=== PATIENT | female | born 1960 | race Caucasian/White ===

== ENCOUNTER 2022-03-22 20:47 | Emergency (ER) | payer BC, OTHER, SELFPAY ==
--- NOTE | 2022-03-22 | ECG_ITS ---
Test Reason : CHEST PAIN Blood Pressure : / mmHG Vent. Rate : 080 BPM Atrial Rate : 080 BPM P-R Int : 176 ms QRS Dur : 088 ms QT Int : 374 ms P-R-T Axes : 034 032 053 degrees QTc Int : 431 ms Normal sinus rhythm Normal ECG No previous ECGs available Referred By: Generic ED Physician Electronically Signed By:Dariel Nobles
--- NOTE | ~2022-03-22 | CT_ITS ---
EXAMINATION: CT CHEST WITHOUT CONTRAST CLINICAL INFORMATION: Left-sided pain of questionable etiology COMPARISON: None TECHNIQUE: Multidetector volumetric CT imaging of the chest was done. Axial MIP volume rendering provided. Sagittal and coronal reformatted images were obtained. This CT examination was performed using dose optimization techniques as appropriate, variously including the following: *Automated exposure control *Adjustment of mA and/or kV according to patient size (this includes techniques or standardized protocols for targeted exams where dose is matched to indication/reason for exam; i.e. extremities or head) *Use of iterative reconstruction technique DLP: 312 mGy-cm FINDINGS: LUNGS: Mild biapical scarring. No regions of consolidation bilaterally. A few tiny calcified nodules are most consistent with granulomas. MEDIASTINUM: Partially calcified nodule noted in the inferior right thyroid lobe, suspected to measure approximately 1 cm in total size. There are subcentimeter mediastinal lymph nodes within the range of normal variation. Cardiac size is within normal limits; no pericardial effusion. Coronary artery calcifications are present. PLEURA: There is no pleural effusion. No pleural mass or thickening. AXILLA: Numerous right axillary clips are present. No mediastinal lymphadenopathy is seen. UPPER ABDOMEN: There is an indeterminate mildly hypodense lesion in the anterior left hepatic lobe measuring approximately 5.2 x 3.2 cm on image 57/67. There is likely an additional 1.2 cm mildly hypodense lesion near the junction of the right and left hepatic lobe on image 55/67. OSSEOUS STRUCTURES: Mild degenerative endplate changes are noted in the spine. CT/CT chest wo IV con IMPRESSION: 1. No acute intrathoracic findings identified. 2. Partially calcified inferior right thyroid lobe nodule suspected to measure approximately 1 cm. If not already performed, further workup with thyroid ultrasound is recommended. 3. Coronary artery calcifications. Correlation with cardiac risk factors is recommended. 4. Indeterminate hepatic lesions as described above, with benign or malignant etiologies remaining as possibilities. If a diagnosis has not been previously determined, further workup with dynamic liver MRI is recommended.
[2022-03-22 20:48] VITALS: BP 171/98; PULSE 85; RESP 18; TEMP 36.2; O2SAT 100; BMI 25.7
[2022-03-22 21:22] LABS: Basophils Percent Auto 0.1 % (0-2); Hematocrit 36.7 % (37.0-47.0); Hemoglobin 12.2 g/dl (12.0-16.0); Imm Gran Abs Auto 0.04 X10*3/uL (0.00-0.03); Imm Gran Pct Auto 0.5 % (0.0-0.4); Lymphocytes Absolute Auto 1.7 X10*3/uL (1.2-4.9); Lymphocytes Percent Auto 21.8 % (20-40); MANUAL DIFF FLAG NO; Mean Corpuscular HGB Conc 33.2 g/dl (31.0-35.0); Mean Corpuscular Volume 87.2 fL (80.0-98.0); Mean Platelet Volume 8.9 fL (9.4-12.3); Monocytes Absolute Auto 0.6 X10*3/uL (0.1-1.2); Monocytes Percent Auto 7.7 % (2-11); Neutrophils Absolute Auto 5.4 x10*3/uL (2.0-8.3); Neutrophils Percent Auto 69.9 % (45-73); Platelet Count 247 X10*3/uL (160-400); Red Blood Count 4.21 X10*6/uL (4.20-5.50); Red Cell Distribution Width 13.5 % (11.0-16.0); White Blood Count 7.7 X10*3/uL (4.8-10.8)
[2022-03-22 21:44] LABS: Alanine Aminotransferase 103 U/L (0-31); Albumin Level 4.2 g/dL (3.5-5.0); Alkaline Phosphatase 50 U/L (39-117); Anion Gap 14 (12-20); Aspartate Amino Transferase 56 U/L (5-31); Bilirubin Total 0.4 mg/dL (0.0-1.0); Blood Urea Nitrogen 12 mg/dL (9-16); Calcium 9.6 mg/dL (8.4-10.2); Carbon Dioxide 26 mmol/L (22-29); Chloride 104 mmol/L (96-108); Creatinine Clr Calc Pharmacy 77.9; Estimated Glomerular Filt Rate > 60; Glucose Random 104 mg/dL (60-115); Potassium 4.1 mmol/L (3.3-5.1); Sodium 140 mmol/L (135-145); Total Protein 7.4 g/dL (6.5-8.0)
--- NOTE | 2022-03-22 22:06 | ED_ITS ---
HPI - Chest Pain General Chief Complaint: Chest Pain Stated Complaint: Chest pain Time Seen by Provider: 03/22/22 21:10 Source: patient Mode of arrival: ambulatory Limitations: no limitations History of Present Illness HPI narrative: Patient with history of hypertension hyperlipidemia been complaining of left-sided chest pain for last 3 days. Pain is constant all the time feels something squeezing on the left side no shortness of breath no cough also patient feels some slight burning sensation mid chest with no history of GERD in the past. Pain radiates to the left shoulder never had similar pain in the pas t, no diaphoresis no cough patient does take baby aspirin daily as patient's mother has significant history of heart problems Related Data Allergies Allergy/AdvReac Type Severity Reaction Status Date / Time codeine Allergy Nausea and Verified 03/22/22 22:23 Vomiting erythromycin base Allergy Nausea and Verified 03/22/22 22:23 Vomiting [id number]-[id number]-[id number] Reductase Allergy Anaphylaxis Verified 03/22/22 22:23 Inhibitor terbinafine Allergy Hives Verified 03/22/22 22:23 tree nut Allergy Anaphylaxis Verified 03/22/22 22:23 Review of Systems Review of Systems: Yes all other systems are reviewed and are negative [facility] Past Medical History Medical History Hyperlipidemia Hypertension Social History Social History Alcohol intake: current Alcohol intake frequency: a few times a month Patient Tobacco Use Status: Never used Tobacco Use of substances other than those prescribed or required for medical reasons: No Advance Directives: No Physical Exam Vital Signs: Vital Signs: Last Vital Signs Temp 98.1 F 03/22/22 22:08 Pulse 71 03/22/22 23:50 Resp 15 03/22/22 23:50 BP 153/84 H 03/22/22 23:50 Pulse Ox 98 03/22/22 23:50 BMI result Body Mass Index 25.7 Appearance: Alert. Oriented X3. No acute distress. Eyes: No pallor or icterus ENT: Pharynx normal. Oral Mucosa moist Neck: Normal inspection. Neck supple. CVS: Normal heart rate and rhythm. Pulses normal. Respiratory: No respiratory distress. Equal air entry bilateral, no wheezing/rales/rhonchi Abdomen: Soft and nontender. Bowel sounds are present, no mass palpable, no CVA tenderness Skin: Skin warm and dry. Normal skin color. Normal skin turgor. Extremities: No lower extremity edema. No calf tenderness Neuro: Oriented X 3. No motor deficit. MDM - Chest Pain MDM Narrative Medical decision making narrative: Patient with 3 days of chest pain without any ischemic changes high sensitive troponin negative patient still complaining of discomfort in the chest chest CT was done which was also negative for some calcification of coronary arteries will repeat troponin place nitro paste. Patient took aspirin today in the morning Lab Data Attestation: I reviewed the patient's lab results. Result diagrams: 03/22/22 21:13 03/22/22 21:13 Labs: Lab Results 03/22/22 03/22/22 03/22/22 Range/Units 21:13 21:13 21:13 WBC 7.7 (4.8-10.8) X10*3/uL RBC 4.21 (4.20-5.50) X10*6/uL Hgb 12.2 (12.0-16.0) g/dl Hct 36.7 L (37.0-47.0) % MCV 87.2 (80.0-98.0) fL MCH 29.0 (27.0-33.0) pg MCHC 33.2 (31.0-35.0) g/dl RDW 13.5 (11.0-16.0) % Plt Count 247 (160-400) X10*3/uL MPV 8.9 L (9.4-12.3) fL Immature Gran % (Auto) 0.5 H (0.0-0.4) % Neut % (Auto) 69.9 (45-73) % Lymph % (Auto) 21.8 (20-40) % [place] % (Auto) 7.7 (2-11) % Eos % (Auto) 0.0 (0-4) % Baso % (Auto) 0.1 (0-2) % Lymph # (Auto) 1.7 (1.2-4.9) X10*3/uL [place] # (Auto) 0.6 (0.1-1.2) X10*3/uL Eos # (Auto) 0.0 (0.0-0.4) X10*3/uL Baso # (Auto) 0.0 (0.0-0.2) X10*3/uL Abs Immat Gran (auto) 0.04 H (0.00-0.03) X10*3/uL Absolute Neuts (auto) 5.4 (2.0-8.3) x10*3/uL Absolute Nucleated RBC 0.000 (0.0-0.012) X10*3/uL Nucleated RBC % (auto) 0.0 (0.0-0.2) /100WBC D-Dimer High Sensitivty NG/ML Sodium 140 (135-145) mmol/L Potassium 4.1 (3.3-5.1) mmol/L Chloride 104 (96-108) mmol/L Carbon Dioxide 26 (22-29) mmol/L Anion Gap 14 (12-20) BUN 12 (9-16) mg/dL Creatinine 0.70 (0.5-1.4) mg/dL Estim Creat Clear Calc 77.9 Estimated GFR > 60 Random Glucose 104 (60-115) mg/dL Calcium 9.6 (8.4-10.2) mg/dL Total Bilirubin 0.4 (0.0-1.0) mg/dL AST 56 H (5-31) U/L ALT 103 H (0-31) U/L Alkaline Phosphatase 50 (39-117) U/L Troponin I High Sens < 3.5 (<3.5-17.0) ng/L B-Natriuretic Peptide 32 (<100) pg/mL Total Protein 7.4 (6.5-8.0) g/dL Albumin 4.2 (3.5-5.0) g/dL 03/22/22 03/23/22 Range/Units 22:31 00:52 WBC (4.8-10.8) X10*3/uL RBC (4.20-5.50) X10*6/uL Hgb (12.0-16.0) g/dl Hct (37.0-47.0) % MCV (80.0-98.0) fL MCH (27.0-33.0) pg MCHC (31.0-35.0) g/dl RDW (11.0-16.0) % Plt Count (160-400) X10*3/uL MPV (9.4-12.3) fL Immature Gran % (Auto) (0.0-0.4) % Neut % (Auto) (45-73) % Lymph % (Auto) (20-40) % [place] % (Auto) (2-11) % Eos % (Auto) (0-4) % Baso % (Auto) (0-2) % Lymph # (Auto) (1.2-4.9) X10*3/uL [place] # (Auto) (0.1-1.2) X10*3/uL Eos # (Auto) (0.0-0.4) X10*3/uL Baso # (Auto) (0.0-0.2) X10*3/uL Abs Immat Gran (auto) (0.00-0.03) X10*3/uL Absolute Neuts (auto) (2.0-8.3) x10*3/uL Absolute Nucleated RBC (0.0-0.012) X10*3/uL Nucleated RBC % (auto) (0.0-0.2) /100WBC D-Dimer High Sensitivty 239 NG/ML Sodium (135-145) mmol/L Potassium (3.3-5.1) mmol/L Chloride (96-108) mmol/L Carbon Dioxide (22-29) mmol/L Anion Gap (12-20) BUN (9-16) mg/dL Creatinine (0.5-1.4) mg/dL Estim Creat Clear Calc Estimated GFR Random Glucose (60-115) mg/dL Calcium (8.4-10.2) mg/dL Total Bilirubin (0.0-1.0) mg/dL AST (5-31) U/L ALT (0-31) U/L Alkaline Phosphatase (39-117) U/L Troponin I High Sens < 3.5 (<3.5-17.0) ng/L B-Natriuretic Peptide (<100) pg/mL Total Protein (6.5-8.0) g/dL Albumin (3.5-5.0) g/dL ECG Data ECG #1: Attestation: I personally reviewed and interpreted this ECG as follows: Interpretation: Normal sinus rhythm heart rate 80 beats per minute normal interval normal axis patient normal EKG Scores Heart Score History: -0- slightly suspicious ECG: -0- normal Age: -1- >45 - <65 Risk factory: -1- 1 or 2 risk factors Troponin: -0- < or = normal limit Score: 2 Risk: 1.7% Discharge Plan Discharge Clinical Impression: Chest pain Patient Disposition: Home, Self-Care Instructions: Chest Pain (ED) Additional Instructions: Continue to take a baby aspirin daily Follow with PCP/cardiology for further evaluation including stress test Go to the ER if increased in severity of chest pain or change in character chest pain
[2022-03-22 22:08] VITALS: BP 158/93; PULSE 82; RESP 18; TEMP 36.7; O2SAT 99
[2022-03-22] MEDS: Famotidine/PF 20 MG/2 ML VIAL IVPUSH (22:35)
[2022-03-22 22:53] LABS: D Dimer High Sensitivity 239 NG/ML
[2022-03-22 23:04] LABS: B Type Natriuretic Peptide 32 pg/mL (<100); Troponin-I High Sensitivity < 3.5 ng/L (<3.5-17.0)
[2022-03-22 23:50] VITALS: BP 153/84; PULSE 71; RESP 15; O2SAT 98
[2022-03-23] MEDS: Nitroglycerin 2 % Oint 1 GM Packet 0.5 INCH TRANSDERMA (00:40)
[2022-03-23 01:22] LABS: Troponin-I High Sensitivity < 3.5 ng/L (<3.5-17.0)
== END 2022-03-23 01:44 | disposition home or self-care (01) ==
PROVIDERS: Emergency Provider Internal Medicine; PCP Internal Medicine
DX: R07.89 Other chest pain (principal); M54.6 Pain in thoracic spine; R06.02 Shortness of breath; Z79.899 Other long term (current) drug therapy; Z20.822 Contact with and (suspected) exposure to COVID-19
CPT/HCPCS: 36415; 71250; 80053; 83880; 84484; 85025; 85379; 93005; 96374; 99284

== ENCOUNTER 2025-01-08 13:44 | Emergency (ER) | payer BC, OTHER, SELFPAY ==
--- NOTE | ~2025-01-08 | CT_ITS ---
EXAMINATION: CT ABDOMEN AND PELVIS WITHOUT CONTRAST CLINICAL INFORMATION: Right flank pain. COMPARISON: No prior. Correlation made with CT chest 03/22/2022. TECHNIQUE: Multidetector volumetric imaging was performed from the superior aspect of the liver through the pubic symphysis. Sagittal and coronal reformatted images were obtained on the technologist's workstation. This CT examination was performed using dose optimization techniques as appropriate, variously including the following: *Automated exposure control *Adjustment of mA and/or kV according to patient size (this includes techniques or standardized protocols for targeted exams where dose is matched to indication/reason for exam; i.e. extremities or head) *Use of iterative reconstruction technique FINDINGS: LUNG BASES: The visualized lung bases are unremarkable. LIVER, GALLBLADDER, AND BILIARY TREE: The unenhanced liver again demonstrates a lobular hypoattenuating mass in the left hepatic lobe, segment 3, measuring 3.0 x 5.1 x 3.5 cm (AP, TRV, CC), unchanged from 2021 and probable benign entity. Liver otherwise normal. There is no intra or extrahepatic biliary ductal dilatation. Gallbladder demonstrates tiny layering gallstones but is otherwise normal in appearance. PANCREAS: Unremarkable. SPLEEN: Unremarkable. ADRENAL GLANDS: Unremarkable. KIDNEYS AND URETERS: The kidneys are normal in size, shape, and attenuation. No hydronephrosis, hydroureter, or calculi seen. No perinephric stranding. BLADDER: Poorly distended although grossly normal . GASTROINTESTINAL TRACT: The small and large bowel are unremarkable. The appendix is unremarkable. ABDOMINAL WALL: No significant hernia is appreciated. LYMPH NODES: Normal. VASCULAR: Mild atheromatous calcification of the aorta. No aneurysm. PELVIC VISCERA: The uterus and adnexa are unremarkable. OSSEOUS STRUCTURES: No suspicious lytic or blastic bone lesion. CT/CT abdomen pelvis wo IV con IMPRESSION: 1. No acute findings in the abdomen or pelvis. No urological calculus or obstruction. 2. Stable lobular mass in segment 3 of the liver measuring 3.0 x 5.1 x 3.5 cm, unchanged from 2021 exam and consistent with a benign entity. Please correlate with any outside imaging performed to characterize this further. 3. Cholelithiasis without evidence of gallbladder inflammation. Electronically signed by: Car Stevens MD 01/08/2025 02:36 PM EDT
--- NOTE | ~2025-01-08 | US_ITS ---
CLINICAL HISTORY: RUQ pain, GB, CBD US abdomen limited Comparison: None Findings: No biliary ductal dilatation. The common duct measures 3 mm in diameter. No gallbladder wall thickening or pericholecystic fluid. The gallbladder appears normally distended. Mobile hyperechoic gallstone measuring 3 x 8 mm. IMPRESSION: 1. Single mobile gallstone with no findings of cholecystitis or biliary ductal dilatation. This document has been electronically signed by: Kaveh Aguirre MD on 01/08/2025 19:18:28
[2025-01-08 13:55] VITALS: BP 144/87; PULSE 94; RESP 18; TEMP 36.6; O2SAT 97; BMI 26.0
--- NOTE | 2025-01-08 13:59 | ED.GENADULT ---
HPI - General Adult General Chief complaint: Abdominal Pain Stated complaint: R abd pain Time Seen by Provider: 01/08/25 17:49 Source: patient Limitations: no limitations History of Present Illness ED Provider: Emma Astudillo PA-C HPI narrative: 64-year-old female with a history of interstitial cystitis, hypertension and hyperlipidemia who presents with the abdominal pain x1 week. Patient states she has been having constant upper abdominal discomfort with radiation to the right mid back. The discomfort fluctuates in intensity, she describes the pain as a ?squeezing and gripping of her intestines?. Associated nausea at times. Denies specific postprandial symptoms, active vomiting or fever. No diarrhea or constipation. No abdominal distention. No dysuria, hematuria or history of kidney stones. Related Data Previous Rx's ?Medication ?Instructions ?Recorded nitrofurantoin 100 mg PO Q12H 7 days #14 caps 01/08/25 monohydrate/macrocrystals 100 mg capsule (Macrobid) Allergies Allergy/AdvReac Type Severity Reaction Status Date / Time codeine Allergy Nausea and Verified 01/08/25 13:56 Vomiting erythromycin base Allergy Nausea and Verified 01/08/25 13:56 Vomiting [id number] Reductase Allergy Anaphylaxis Verified 01/08/25 13:56 Inhibitor terbinafine Allergy Hives Verified 01/08/25 13:56 tree nut Allergy Anaphylaxis Verified 01/08/25 13:56 Review of Systems Review of Systems: Yes all other systems are reviewed and are negative Constitutional: Constitutional: Denies fatigue and Denies fever(s) Cardiovascular: Cardiovascular: Denies chest pain and Denies dyspnea Respiratory: Respiratory: Denies cough and Denies dyspnea Gastrointestinal: Gastrointestinal: Reports abdominal pain, Denies constipation, Denies diarrhea, Reports nausea and Denies vomiting Genitourinary: Genitourinary: Denies hematuria, Denies dysuria and Denies flank pain Endocrine: Endocrine: Denies fatigue PMFSH Past Medical History Attestation statement: The following information was validated with the patient. Medical History (Updated 01/08/25 @ 18:15 by JOSE Ferguson) Hyperlipidemia Hypertension Social History Social History (System 08/11/23 @ 14:24 by Gabriela Roman) Alcohol intake: current Alcohol intake frequency: a few times a month Patient Tobacco Use Status: Never used Tobacco Smoked in Last 30 Days: No Use of substances other than those prescribed or required for medical reasons: No Advance Directives: No Advance Directives Information Provided: No Physical Exam ED Vital Signs: Vital Signs - 24 hr 01/08/25 13:55 01/08/25 17:18 01/08/25 17:43 Temperature 97.8 F 97.0 F 97.7 F Pulse Rate 94 91 83 Respiratory Rate 18 16 14 Blood Pressure 144/87 H 182/100 H 146/93 H Pulse Oximetry 97 95 99 Oxygen Delivery Method Room Air Room Air Room Air 01/08/25 18:37 Temperature Pulse Rate 85 Respiratory Rate 16 Blood Pressure 142/74 H Pulse Oximetry 97 Oxygen Delivery Method Room Air BMI result Body Mass Index 26.0 Const Other: Alert well-appearing Orientation/consciousness: patient oriented x3 Resp Effort & Inspection: normal respiratory effort Cardio Other: Normal peripheral perfusion GI Other: Abdomen is soft, nondistended, mild tenderness to palpation in right upper quadrant with deep palpation no guarding Back/Spine/Pelvis Other: No CVA tenderness Skin Other: Warm dry no rash Neuro General: patient oriented x3, gait normal, no focal motor deficits and CN's II-XI intact bilaterally Psych Other: Cooperative Course Course Course Narrative: RME, this is a rapid medical exam performed by Jeff Vasquez please refer to primary provider for complete H&P- 64-year-old female presents for evaluation of intermittent right-sided flank pain. The pain seemed to have resolved over the weekend but returned yesterday. Denies any nausea vomiting or symptoms. Plan for labs, urinalysis, CT scan of the abdomen pelvis without contrast Reevaluation(s) Reevaluation #1: Discussed findings with the patient, she is opting to follow up with her primary care and have surgical consult through [facility]. We will be sending with return precautions, patient is pleased with the plan. Time: 20:15 Medications Administered Discontinued Medications Generic Name Dose Route Start Last Admin Trade Name Freq PRN Reason Stop Dose Admin Acetaminophen 975 mg 01/08/25 17:59 01/08/25 18:38 Acetaminophen 325 Mg Tablet PO 01/08/25 18:00 975 mg ONCE ONE Administration Nitrofurantoin Macrocrystals 100 mg 01/08/25 17:59 01/08/25 18:38 Nitrofurantoin Monohyd/M-Cryst 100 Mg Capsule PO 01/08/25 18:00 100 mg ONCE ONE Administration Medical Decision Making Medical Decision Making [facility] Narrative: 64-year-old female with a history of hypertension and hyperlipidemia who presents with the abdominal pain x1 week. Patient states she has been having constant upper abdominal discomfort with radiation to the right mid back. The discomfort fluctuates in intensity, she describes the pain as a ?squeezing and gripping of her intestines?. Associated nausea at times. Denies specific postprandial symptoms, active vomiting or fever. No diarrhea or constipation. No abdominal distention. No dysuria, hematuria or history of kidney stones. Problem: Age, hypertension, interstitial cystitis History: Per patient I have considered the following differential diagnoses: Biliary colic, cholecystitis, gastritis, pancreatitis, renal colic, pyelonephritis, UTI Plan: Given distribution of discomfort in nature of symptoms, I am considering biliary versus gastric versus pancreatic etiology as cause for symptoms. Also considering renal colic, she is complaining of right flank mid back pain. Screening labs including a urinalysis and CT scan were already obtained from triage. Patient actually has cholelithiasis, no evidence of renal obstructing stone, she does have a UTI. Obtaining an ultrasound of the right upper quadrant for better differentiation of the associated structures, we will eventually be calling for surgical consult, the patient was aware. She is asking for Tylenol for her discomfort, we will use Macrobid for the UTI. I have independently reviewed the following tests: Labs: No leukocytosis, not anemic, no electrolyte abnormality, renal function at baseline, urine appears potentially infected, no hematuria CT abdomen and pelvis: CT/CT abdomen pelvis wo IV con IMPRESSION: 1. No acute findings in the abdomen or pelvis. No urological calculus or obstruction. 2. Stable lobular mass in segment 3 of the liver measuring 3.0 x 5.1 x 3.5 cm, unchanged from 2021 exam and consistent with a benign entity. Please correlate with any outside imaging performed to characterize this further. 3. Cholelithiasis without evidence of gallbladder inflammation. Electronically signed by: Car Stevens MD 01/08/2025 02:36 PM EDT RUQ US: Findings: No biliary ductal dilatation. The common duct measures 3 mm in diameter. No gallbladder wall thickening or pericholecystic fluid. The gallbladder appears normally distended. Mobile hyperechoic gallstone measuring 3 x 8 mm. IMPRESSION: 1. Single mobile gallstone with no findings of cholecystitis or biliary ductal dilatation. This document has been electronically signed by: Kaveh Aguirre MD on 01/08/2025 19:18:28 Lab Data 01/08/25 14:07 01/08/25 14:07 Labs: Lab Results 01/08/25 Range/Units 14:07 WBC 8.4 (4.8-10.8) X10*3/uL RBC 4.53 (4.20-5.50) X10*6/uL Hgb 13.1 (12.0-16.0) g/dl Hct 39.7 (37.0-47.0) % MCV 87.6 (80.0-98.0) fL MCH 28.9 (27.0-33.0) pg MCHC 33.0 (31.0-35.0) g/dl RDW 13.7 (11.0-16.0) % Plt Count 258 (160-400) X10*3/uL MPV 8.6 L (9.4-12.3) fL Immature Gran % (Auto) 0.5 H (0.0-0.4) % Neut % (Auto) 64.7 (45-73) % Lymph % (Auto) 25.6 (20-40) % [place] % (Auto) 7.9 (2-11) % Eos % (Auto) 1.1 (0-4) % Baso % (Auto) 0.2 (0-2) % Lymph # (Auto) 2.2 (1.2-4.9) X10*3/uL [place] # (Auto) 0.7 (0.1-1.2) X10*3/uL Eos # (Auto) 0.1 (0.0-0.4) X10*3/uL Baso # (Auto) 0.0 (0.0-0.2) X10*3/uL Abs Immat Gran (auto) 0.04 H (0.00-0.03) X10*3/uL Absolute Neuts (auto) 5.4 (2.0-8.3) x10*3/uL Absolute Nucleated RBC 0.000 (0.0-0.012) X10*3/uL Nucleated RBC % (auto) 0.0 (0.0-0.2) /100WBC Smear Tech's Comments VERIFIED Sodium 141 (135-145) mmol/L Potassium 4.5 (3.3-5.1) mmol/L Chloride 106 (96-108) mmol/L Carbon Dioxide 27 (22-29) mmol/L Anion Gap 13 (12-20) BUN 16 (9-16) mg/dL Creatinine 0.79 (0.5-1.4) mg/dL Estim Creat Clear Calc 66.7 Estimated GFR > 60 Random Glucose 97 (60-115) mg/dL Calcium 9.8 (8.4-10.2) mg/dL Total Bilirubin 0.3 (0.0-1.0) mg/dL AST 22 (5-31) U/L ALT 64 H (0-31) U/L Alkaline Phosphatase 91 (39-117) U/L Total Protein 8.3 H (6.5-8.0) g/dL Albumin 4.2 (3.5-5.0) g/dL Lipase 51 (8-78) U/L Urine Color Yellow Urine Appearance Clear Urine pH 7.5 (5.0-9.0) Ur Specific [place] <= 1.005 (1.005-1.025) Urine Protein Negative (Neg-Trace) mg/dL Urine Glucose (UA) Negative (Negative) mg/dL Urine Ketones Negative (Negative) mg/dL Urine Blood Negative (Negative) Urine Nitrite Negative (Negative) Ur Leukocyte Esterase Large (3+) H (Negative) Urine RBC 0-2 (0-2) /HPF Urine WBC 21-50 H (0-5) /HPF Ur Squamous Epith Cells 0-2 (0-2) /HPF Urine Bacteria Trace (None Seen) Hyaline Casts 0-2 (0-2) /LPF Discharge Plan Discharge Clinical Impression: Cholelithiasis, Urinary tract infection Patient Disposition: Home, Self-Care Instructions: Gallstones (ED), Urinary Tract Infection in Women (ED) Additional Instructions: You were found to have a urinary tract infection and a solitary gallstone. See home care instructions. As we discussed, follow up with your primary care provider for a referral, to have a surgical consult, to discuss the elective removal of the gallbladder. Take the Macrobid as directed. Return precautions for the development of severe abdominal pain, intractable nausea/ vomiting, fever. Prescriptions: New nitrofurantoin monohyd/m-cryst [Macrobid] 100 mg capsule 100 mg PO Q12H 7 Days Qty: 14 0RF Rx Instructions: must administer with a meal/food Print Language: Amharic
[2025-01-08 14:18] LABS: Appearance Urine Clear; Basophils Percent Auto 0.2 % (0-2); Color Urine Yellow; Eosinophils Absolute Auto 0.1 X10*3/uL (0.0-0.4); Eosinophils Percent Auto 1.1 % (0-4); Glucose Urine UA Negative (Negative); Hematocrit 39.7 % (37.0-47.0); Hemoglobin 13.1 g/dl (12.0-16.0); Imm Gran Abs Auto 0.04 X10*3/uL (0.00-0.03); Imm Gran Pct Auto 0.5 % (0.0-0.4); Leukocyte Esterase Urine Large (3+) (Negative); Lymphocytes Absolute Auto 2.2 X10*3/uL (1.2-4.9); Lymphocytes Percent Auto 25.6 % (20-40); MANUAL DIFF FLAG SCAN; Mean Corpuscular Hemoglobin 28.9 pg (27.0-33.0); Mean Corpuscular Volume 87.6 fL (80.0-98.0); Mean Platelet Volume 8.6 fL (9.4-12.3); Monocytes Absolute Auto 0.7 X10*3/uL (0.1-1.2); Monocytes Percent Auto 7.9 % (2-11); Neutrophils Absolute Auto 5.4 x10*3/uL (2.0-8.3); Neutrophils Percent Auto 64.7 % (45-73); Nitrite Urine Negative (Negative); PH 7.5 (5.0-9.0); Platelet Count 258 X10*3/uL (160-400); Red Blood Count 4.53 X10*6/uL (4.20-5.50); Red Cell Distribution Width 13.7 % (11.0-16.0); SCAN SMEAR FLAG 1; Specific Gravity - Urine <= 1.005 (1.005-1.025); UMIC TRIGGER UACC YES; Urine Blood Negative (Negative); Urine Ketones Negative (Negative); Urine Protein Negative (Neg-Trace); White Blood Count 8.4 X10*3/uL (4.8-10.8)
[2025-01-08 14:23] LABS: Bacteria Urine Trace (None Seen); Hyaline Casts Urine 0-2 /LPF (0-2); RBC Urine 0-2 /HPF (0-2); Squamous Epithelial Cell Urine 0-2 /HPF (0-2); UACC Culture Trigger YES; WBC Urine 21-50 /HPF (0-5)
[2025-01-08 14:38] LABS: SLIDE REVIEW VERIFIED
[2025-01-08 14:48] LABS: Alanine Aminotransferase 64 U/L (0-31); Albumin Level 4.2 g/dL (3.5-5.0); Alkaline Phosphatase 91 U/L (39-117); Anion Gap 13 (12-20); Aspartate Amino Transferase 22 U/L (5-31); Bilirubin Total 0.3 mg/dL (0.0-1.0); Blood Urea Nitrogen 16 mg/dL (9-16); Calcium 9.8 mg/dL (8.4-10.2); Carbon Dioxide 27 mmol/L (22-29); Chloride 106 mmol/L (96-108); Creatinine Clr Calc Pharmacy 66.7; Estimated Glomerular Filt Rate > 60; Glucose Random 97 mg/dL (60-115); Lipase 51 U/L (8-78); Potassium 4.5 mmol/L (3.3-5.1); Sodium 141 mmol/L (135-145); Total Protein 8.3 g/dL (6.5-8.0)
[2025-01-08 17:18] VITALS: BP 182/100; PULSE 91; RESP 16; TEMP 36.1; O2SAT 95
[2025-01-08 17:43] VITALS: BP 146/93; PULSE 83; RESP 14; TEMP 36.5; O2SAT 99
[2025-01-08 18:37] VITALS: BP 142/74; PULSE 85; RESP 16; O2SAT 97
[2025-01-08] MEDS: Nitrofurantoin Monohyd/M-Cryst 100 MG CAPSULE PO (18:38)
[2025-01-08] MEDS: Acetaminophen 325 MG TABLET 975 MG PO (18:38)
--- OUTSIDE RECORDS SUMMARY | 2025-01-08 19:35 | XMS_ITS | Continuity of Care Document ---
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 It does not include entries that were removed or entered in error. Problem Status Onset Date Problem Type Date of Resolution Comments Source hordeolum externum right eyelid Inactive Condition discussed eye hygeine and cool compresses. [facility] Allergies, Adverse Reactions, Alerts Combined list of allergies from Department of Defense and Veterans Affairs facilities. It does not include entries that were removed or entered in error. Substance Category Reaction Severity Reaction type Status Date Reported Comments Source CODEINE {Cla } Drug allergy (disorder) Vomiting active 7 [facility] ERYTHROMYCIN (ERYTHROMYCIN BASE) Drug allergy (disorder) Cramp active 7 [facility] Immunizations Combined list of available immunizations from the Department of Defense and Veterans Affairs facilities. Immunization Series Date Given Administered By Site Reaction Lot Number CVX Code Drug Onion Tier Status Comments Source Influenza, injectable, quadrivalent, preservative free 1 2018 Unknown, Provider [id number] Sanofi Pasteur (PMC) complet ed Influenza , injectabl e, quadrival ent, preservat damaris free DoD influenza, injectable, quadrivalent, contains preservative 1 2017 Unknown, Provider [id number] 158 Transcribed (TRS) complet ed influenza , injectabl e, quadrival ent, contains preservat damaris DoD influenza virus vaccine, unspecified formulation 1 2016 Unknown, Provider 88 Transcribed (TRS) complet ed influenza virus vaccine, unspecifi ed formulati on DoD Influenza, seasonal, injectable 1 2015 Unknown, Provider [id number] [place] ([place]B) complet ed Influenza , seasonal, injectabl e DoD Influenza, seasonal, injectable 1 2014 Unknown, Provider 141 Transcribed (TRS) complet ed Influenza , seasonal, injectabl e DoD hepatitis B vaccine, adult dosage 3 2014 Unknown, Provider [id number] Merck (MSD) complet ed hepatitis B vaccine, adult dosage DoD Influenza, seasonal, injectable, preservative free 1 2013 Unknown, Provider [id number] [facility] [employer]ochitl (So-Shee) [employer] ([facility]) complet ed Influenza , seasonal, injectabl e, preservat damaris free DoD hepatitis B vaccine, adult dosage 2 2013 Unknown, Provider [id number] Merck (MSD) complet ed hepatitis B vaccine, adult dosage DoD hepatitis B vaccine, adult dosage 1 2013 Unknown, Provider [id number] 43 Merck (MSD) complet ed hepatitis B vaccine, adult dosage DoD Influenza, seasonal, injectable 1 2012 Unknown, Provider [id number] 141 Sanofi Pasteur ([facility]) complet ed Influenza , seasonal, injectabl e DoD tetanus toxoid, reduced diphtheria toxoid, and acellular pertu is vaccine, adsorbed 1 2011 Unknown, Provider [id number] Sanofi Pasteur ([facility]) complet ed tetanus toxoid, reduced diphtheri a toxoid, and acellular pertussis vaccine, adsorbed DoD Influenza, seasonal, injectable, preservative free 17 2011 Unknown, Provider [id number] 140 [facility] Xoch[employer]l (So-Shee) [employer] ([facility]) complet ed Influenza , seasonal, injectabl e, preservat damaris free DoD Influenza, seasonal, injectable 1 2010 Unknown, Provider [id number] 141 Sanofi Pasteur ([facility]) complet ed Influenza , seasonal, injectabl e DoD influenza virus vaccine, split virus (incl. purified surface antigen)-reti red CODE 3 2009 Unknown, Provider [id number] 15 [employer] Fannie. (NOV) complet ed influenza virus vaccine, split virus (incl. purified surface antigen)- retired CODE DoD Novel influenza-H1N 1-09, injectable 1 2009 Unknown, Provider [id number] [employer] Fannie. (NOV) complet ed Novel influenza -[id number], injectabl e DoD influenza virus vaccine, split virus (incl. purified surface antigen)-reti red CODE 2 2008 Unknown, Provider 15 Transcribed (TRS) complet ed influenza virus vaccine, split virus (incl. purified surface antigen)- retired CODE DoD influenza virus vaccine, split virus (incl. purified surface antigen)-reti red CODE 1 2007 Unknown, Provider [id number] [facility] ([facility]) complet ed influenza virus vaccine, split virus (incl. purified surface antigen)- retired CODE DoD influenza virus vaccine, split virus (incl. purified surface antigen)-reti red CODE 1 2006 Unknown, Provider [id number] 15 [facility] ([facility]) complet ed influenza virus vaccine, split virus (incl. purified surface antigen)- retired CODE DoD influenza virus vaccine, split virus (incl. purified surface antigen)-reti red CODE 1 2005 Unknown, Provider [id number] Other (OTH) complet ed influenza virus vaccine, split virus (incl. purified surface antigen)- retired CODE DoD influenza virus vaccine, split virus (incl. purified surface antigen)-reti red CODE 1 2004 Unknown, Provider [id number] 15 Sanofi Pasteur ([facility]) complet ed influenza virus vaccine, split virus (incl. purified surface antigen)- retired CODE DoD influenza virus vaccine, live, attenuated, for intranasal use 1 2004 Unknown, Provider [id number] 111 [place]. ([facility]) complet ed influenza virus vaccine, live, attenuate d, for intranasa l use DoD tetanus and diphtheria toxoids, adsorbed, preservative free, for adult use (2 Lf of tetanus toxoid and 2 Lf of diphtheria toxoid) 1 2003 Unknown, Provider [id number] Sanofi Pasteur ([facility]) complet ed tetanus and diphtheri a toxoids, adsorbed, preservat damaris free, for adult use (2 Lf of tetanus toxoid and 2 Lf of diphtheri a toxoid) DoD tuberculin skin test; purified protein derivative solution, intradermal 1 2003 Unknown, Provider [id number] 96 Sanofi Pasteur ([facility]) complet ed tuberculi n skin test; purified protein derivativ e solution, intraderm al DoD influenza virus vaccine, whole virus 1 2002 Unknown, Provider [id number] 16 Sanofi Pasteur ([facility]) complet ed influenza virus vaccine, whole virus DoD typhoid vaccine, parenteral, other than acetone-kille d, dried 1 2002 Unknown, Provider [id number] Sanofi Pasteur ([facility]) complet ed typhoid vaccine, parentera l, other than acetone-k illed, dried DoD tuberculin skin test; purified protein derivative solution, intradermal 1 2002 Unknown, Provider [id number] 96 [facility] ([facility]) complet ed tuberculi n skin test; purified protein derivativ e solution, intraderm al DoD influenza virus vaccine, whole virus 1 2001 Unknown, Provider [id number] 16 [facility] ([facility]) complet ed influenza virus vaccine, whole virus DoD tuberculin skin test; purified protein derivative solution, intradermal 1 2001 Unknown, Provider [id number] 96 [facility] ([facility]) complet ed tuberculi n skin test; purified protein derivativ e solution, intraderm al DoD influenza virus vaccine, whole virus 1 2000 Unknown, [facility] [id number] [facility] complet ed influenza virus vaccine, whole virus DoD tuberculin skin test; purified protein derivative solution, intradermal 1 2000 Unknown, Provider [id number] [address] [facility] (CON) complet ed tuberculi n skin test; purified protein derivativ e solution, intraderm al DoD influenza virus vaccine, whole virus 4 2000 Unknown, Provider [id number] 16 [employer] (CON) complet ed influenza virus vaccine, whole virus DoD meningococcal polysaccharid e vaccine (MPSV4) 1 1999 Unknown, Provider [id number] [employer] (CON) complet ed meningoco ccal polysacch aride vaccine (MPSV4) DoD influenza virus vaccine, whole virus 1 1998 Unknown, Provider [id number] 16 [facility] ([facility]) complet ed influenza virus vaccine, whole virus DoD tuberculin skin test; purified protein derivative solution, intradermal 1 1998 Unknown, Provider [id number] 96 [employer] (CON) complet ed tuberculi n skin test; purified protein derivativ e solution, intraderm al DoD yellow fever vaccine 2 1998 Unknown, Provider [id number] [place] (CON) complet ed yellow fever vaccine DoD measles, mumps and rubella virus vaccine 1 1997 Unknown, Provider [id number] [place] (AB) complet ed measles, mumps and rubella virus vaccine DoD typhoid vaccine, live, oral 1 1997 Unknown, Provider [id number] 25 [employer] [facility] (SI) complet ed typhoid vaccine, live, oral DoD influenza virus vaccine, whole virus 3 1997 Unknown, Provider [id number] 16 [employer] (CON) complet ed influenza virus vaccine, whole virus DoD tuberculin skin test; purified protein derivative solution, intradermal 1 1997 Unknown, Provider [id number] 96 [place] (CON) complet ed tuberculi n skin test; purified protein derivativ e solution, intraderm al DoD hepatitis A vaccine, adult dosage 2 1997 Unknown, Provider [id number] Merck (MSD) complet ed hepatitis A vaccine, adult dosage DoD influenza virus vaccine, whole virus 2 1996 Unknown, Provider [id number] 16 Curt-Gypsy (Inactive) ([place]) complet ed influenza virus vaccine, whole virus DoD hepatitis A vaccine, adult dosage 1 1996 Unknown, Provider [id number] Merck (MSD) complet ed hepatitis A vaccine, adult dosage DoD tuberculin skin test; purified protein derivative solution, intradermal 1 1996 Unknown, Provider [id number] 96 [employer] (CON) complet ed tuberculi n skin test; purified protein derivativ e solution, intraderm al DoD influenza virus vaccine, whole virus 1 1995 Unknown, Provider 16 () complet ed influenza virus vaccine, whole virus [facility] tetanus and diphtheria toxoids, adsorbed, preservative free, for adult use (2 Lf of tetanus toxoid and 2 Lf of diphtheria toxoid) 1 1993 Unknown, Provider 09 () complet ed tetanus and diphtheri a toxoids, adsorbed, preservat damaris free, for adult use (2 Lf of tetanus toxoid and 2 Lf of diphtheri a toxoid) [facility] typhoid vaccine, parenteral, acetone-kille d, dried ([place] ) 1 1993 Unknown, Provider [id number] Merck ([facility]) complet ed typhoid vaccine, parentera l, acetone-k illed, dried ([place] ) [facility] cholera vaccine, unspecified formulation 1 1983 Unknown, Provider [id number] 26 Wy[place]-Ayerst (Inactive) ([place]) complet ed cholera vaccine, unspecifi ed formulati on [facility] trivalent poliovirus vaccine, live, oral 2 1979 Unknown, Provider 02 () complet ed trivalent polioviru s vaccine, live, oral [facility] trivalent poliovirus vaccine, live, oral 1 1979 Unknown, Provider 02 () complet ed trivalent polioviru s vaccine, live, oral DoD yellow fever vaccine 1 1979 Unknown, Provider [id number] Jason (Inactive) ([place]) complet ed yellow fever vaccine DoD Encounters Combined list of: 1) Encounters from Department of Veterans Affairs facilities going backup to the last 18 months, not all VA inpatient encounters are included; 2) Encounters from the Department of Defense facilities going backup to 280 months. Location Location Details Encounter Type Encounter Number Reason For Visit Attending Provider ADM Date DC Date Status Disposition Source [facility]) OUTPATIENT [id number] nan mishra rt eye. GUALBERTO PRINCE 01/04 Released w/o Limitations [facility]) Social History Combined list of available smoking, tobacco, and other social history from Department of Defense and Veterans Affairs facilities. Social History Type Response Date Comment [facility] e This section is an empty social history section. DoD
--- OUTSIDE RECORDS SUMMARY | 2025-01-08 19:35 | XMS_ITS | Data Portability ---
Author Organization [facility], [facility] Address [address] [place] [address] Care Team Providers Care Tool Coordinator Name Role Phone ANGELI GOLD Primary Care Provider Assessment Encounter Date Assessment Date Assessment LastModified by Organization Details LastModified Time 08/27/2024 08/27/2024 A/ R CTS P/right carpal tunnel injection is performed today. She will plan for surgical scheduling of right carpal tunnel release in December which should be at least 3 months after the injection performed today. She will arrange scheduling right carpal tunnel release surgery with my admin secretary. We have discussed the postoperative recovery course for the recommended surgery. Risks of surgery include but are not limited to: Infection, bleeding, damage normal tissues, need for future surgeries, and recurrent or recalcitrant symptoms after surgery. Questions asked and answered to the patient's satisfaction; surgery to be scheduled with my admin secretary. Left hand symptoms hopefully will improve over the next few months. We have discussed that nerve recovery can take up to a year after surgery. I do not find any signs on her physical exam today of recurrent carpal tunnel syndrome. addi Not available 08/27/2024 12:23:19 12/27/2024 12/27/2024 Chief Complaint: Bilateral shoulder pain, left greater than right HPI: The patient is a 64-year-old female here today regarding bilateral shoulder pain, left greater than right. She has had approximately one of gradual onset symptoms. She denies any history of shoulder injury or trauma. No medication, therapy and injection treatment. No prior shoulder surgeries. At its worst, pain is 8/10. Rest makes her pain better while repetitive lifting activities to make her symptoms worse. She has a past history of hypertension, history of melanoma and hyperlipidemia. Medications are listed in the medical record. She has no allergies to medications. She is and retired. She denies tobacco use. No personal or family history of blood clots. Past medical, surgical, family and social history; Medications, Allergies and 12-point review of systems have been reviewed, updated and charted. Physical Examination: Height and weight as noted in chart. Constitutional: Patient pleasant, well appearing and in NAD. Mental status: Patient is alert and oriented to person, place and time. No short-term memory deficits. Psychiatric: Mood and affect are appropriate. Head: Normocephalic and atraumatic. Exterior inspection of the ears and nose was unremarkable. Hearing grossly intact. Eyes: Sclera are not blue. methods examiner II-XII are grossly intact. Full extraocular motion. Neck: Supple with age-appropriate ROM. No tracheal deviation. No obvious JVD. Respiratory: Non-labored breathing. Symmetric excursion. No audible wheezing or crackles. Peripheral Vascular: No peripheral edema. Distal pulses intact. Neurological: Peripheral motor and sensory exam normal and equal bilaterally. Skin: No rashes, lesions, wounds to the upper extremities. Normal turgor and coloration. Musculoskeletal: On examination of the bilateral shoulders, there are no effusions, erythema or ecchymosis. Active shoulder elevation to 170? ? ? bilaterally. External rotation to 50? ? ? bilaterally. Internal rotation to the thoracolumbar junction. 4+/5 strength resisted abduction of both shoulders. Positive impingement signs bilaterally. Mild acromioclavicular joint and biceps tenderness. Imaging: X-rays ordered, obtained and reviewed at [facility]. These images included 3 views of each shoulder, Grashey, scapular and axillary views. No acute fractures or dislocations. Normal glenoid humeral joint space and acromiohumeral distance noted bilaterally. Mild acromial clavicular joint arthrosis noted. Type II acromion bilaterally. Numerous surgical clips noted to the right hemithorax status post previous surgery. Procedure: Injection of Steroid and Anesthetic, Subacromial Space, right All reasonable risks and benefits of injection were discussed. Risks include bleeding, infection, non-relief of symptoms, recurrence of symptoms, allergic type reaction, scarring, fat atrophy, and hyperglycemia. After obtaining consent, the right posterior shoulder was prepped in sterile fashion using an alcohol swab. The skin was anesthetized with ethyl chloride spray, wiped again with alcohol, and an injection of 1cc of Kenalog 40 and 4cc? s of Lidocaine 1% was performed using a 22-gauge needle into the subacromial space. The medication flowed freely and the patient tolerated this procedure well. The patient was instructed to avoid strenuous activity following the injection for approximately 24 to 48 hours, ice the area as needed and then a gradual return to normal activities is allowed. Procedure: Injection of Steroid and Anesthetic, Subacromial Space, left All reasonable risks and benefits of injection were discussed. Risks include bleeding, infection, non-relief of symptoms, recurrence of symptoms, allergic type reaction, scarring, fat atrophy, and hyperglycemia. After obtaining consent, the left posterior shoulder was prepped in sterile fashion using an alcohol swab. The skin was anesthetized with ethyl chloride spray, wiped again with alcohol, and an injection of 1cc of Kenalog 40 and 4cc? s of Lidocaine 1% was performed using a 22-gauge needle into the subacromial space. The medication flowed freely and the patient tolerated this procedure well. The patient was instructed to avoid strenuous activity following the injection for approximately 24 to 48 hours, ice the area as needed and then a gradual return to normal activities is allowed. Impression and Plan: 64-year-old female with a one-year history of gradual onset bilateral shoulder pain, left greater than right with overall history and exam consistent with bilateral shoulder subacromial impingement/bursiti s and rotator cuff tendinosis. I discussed options and recommended a conservative course. This included a subacromial injection of steroid to the symptomatic shoulders today that the patient tolerated very well. I stressed the importance of activity modification with avoidance of exacerbating activities including heavy lifting overhead or lifting heavy away from the body. I discussed good lifting mechanics. I also recommended a low-dose oral anti-inflammatory such as ibuprofen sozl-nap-lkcnuow and/or Tylenol as needed. Should symptoms fail to improve and/or recur despite these conservative measures over the next 6-8 weeks, I recommend they call back for another visit. All questions and concerns were addressed. Today's visit involved examining the patient, reviewing the history, reviewing the radiographic studies, counseling the patient regarding treatment options, and the administrative tasks including placing orders, preparing patient information and home handouts and preparing the visit note. This note was generated with [facility] speech recognition associate brand manager dictation software. Please excuse any errors that may have been overlooked during review of this note. Sometimes, these errors may affect the content or meaning of a given sentence. Please call for corrections. [email or web address] Not available 12/27/2024 17:16:02 Plan of Treatment Reminders Order Date Submit Date Provider Last Modified By Organization Details Last Modified Time Details Appointments SURGERY @ [facility] 2024 08:00A M Emma meek MD Not available Not available Not available POST OP 30 2024 10:00A M Mahsa Cortes, OTR/L,CHT Not available Not available Not available Lab None recorde d. Referral None recorde d. Procedures None recorde d. Surgeries carpal tunnel release (SURG) 2023 025 [email or web address] [facility], [address], [place], [address], 12/24/2024 14:44:41 Imaging XR, shoulde r, 2 or more view - rm 219 b/l shldr cz protoco l 2024 025 [email or web address] [facility], [address], [place], [address], 12/27/2024 16:32:40 XR, lumbar spine, 2 view - new eval lumbar pain room 309 2023 024 [email or web address] [facility], [address], [address], [place], [address], 09/14/2024 17:08:00 Medication Orders None recorde d. Patient TargetsNo targets recorded. Patient InstructionsNo instructions recorded. Reason for Referral None Reported. Results Created Date Observation Date Name Description Value Unit Range Abnormal Flag Note LastModifiedBy Organization Detail LastModifiedTime 08/22/2008/22/2024 XR, lumba r spine , 2 view http:/ [email or web address] ?Encry pted=s hAaTro YD8dLq bEUv6g %2BXZw aYqtaq 0bqfl% 2Fg9IQ a4ajBk vP9nXo QUaueC m3YtLR FvZlgJ JJ8mAn HZtai3 8x5682 AC0Kqa H2EV6q iKiQtr MwF INTERFACE [facility] [address], [place], [address], 08/22/2024 11:42:19 08/22/20 24 08/22/2024 XR, lumba r spine , 2 view http:/ [email or web address] ?Encry pted=s hAaTro YD8dLq bEUv6g %2BXZw aYqtaq 0bqfl% 2Fg9IQ a4ajBk vP9nXo QUaueC m3YtLR FvZlgJ JJ8mAn HZtai3 7f9681 AC0Kqa H2EV6q iKiQtr MwF INTERFACE [facility] [address], [place], [address], 08/22/2024 11:42:21 12/27/19 25 12/27/2024 XR, genesisul sruthi, 2 or more view http:/ [email or web address] ?Encry pted=s hAaTro YD8dLq bEUv6g %2BXZw aYqtaq 0bqfl% 2Fg9IQ a4ajBk vP9nXo QUaueC m3YtLR FvZl [place] HZtai3 7e1743 AC0Kqb XiGU6C hKiQtr MwF INTERFACE [facility] [address], [place], [address], 12/27/2024 15:46:24 12/27/19 25 12/27/2024 XR, genesisul sruthi, 2 or more view http:/ [email or web address] ?Encry pted=s hAaTro YD8dLq bEUv6g %2BXZw aYqtaq 0bqfl% 2Fg9IQ a4ajBk vP9nXo QUaueC m3YtLR FvZlgJ JJ8mAn HZtai3 5k2980 AC0Kqb XiGU6C hKiQtr MwF INTERFACE [facility] [address], [place], [address], 12/27/2024 15:46:26 Result Notes None recorded. Problems Name Problem SNOMED Code Status Onset Date Resolution Date Notes Provider Name and Address Organization Details Recorded Time Instabilit y of joint of right knee 3242580741836 102 Active 2023 APOLINAR ROSSI [facility] 4 15:33:12 Low back pain 607248365 Active 2023 KAYLJUVENAL L'HEUREUX [facility] 4 11:25:19 Pain of joint of knee 3390460205 Active 2022 Status : 'A'; Not Available [facility] 4 11:57:38 Problem Notes None recorded. Procedures Surgical History Date Name Laterality Status Provider Name and Address Organization Details Recorded Time 12/27/19 25 Sports Shoulder Bilateral completed Rico Ordoñez MD [address] [facility], [place], [address], [facility] 12/27/2024 17:16:10 12/25/19 25 Sports Knee 4&1 completed hCarlie Parks PA-C [address] [facility], [place], [address], [facility] 12/25/2024 16:14:24 08/27/20 Carpal Tunnel Kenalog 1cc injection, L/R completed Emma Zhang MD [address] [facility], [place], [address], [facility] 08/23/2024 13:12:28 08/15/20 24 31817 Therapeutic Exercise (1:1) completed Tory Srinivasan PTA [address], [place], [address], [facility] 08/15/2024 09:58:53 08/15/20 54669: Manual therapy completed Tory Srinivasan, [employer] [address], [place], [address], [facility] 08/15/2024 09:58:53 08/06/20 88762 Therapeutic Exercise (1:1) completed Tory Srinivasan, [employer] MANAGER [address], [place], [address], [facility] 08/06/2024 10:26:33 08/06/20 36310: Manual therapy completed Tory Srinivasan, [employer] MANAGER [address], [place], [address], [facility] 08/06/2024 10:26:33 08/01/20 69146 Therapeutic Exercise (1:1) completed Tory Srinivasan, [employer]PER[employer] MANAGER [address], [place], [address], [facility] 08/01/2024 09:37:46 08/01/20 98624: Manual therapy completed Tory Srinivasan, [employer] MANAGER [address], [place], [address], [facility] 08/01/2024 09:37:46 07/19/20 37525 Therapeutic Exercise (1:1) completed Robert Leo, PT [address], [place], [address], [facility] 07/22/2024 20:06:51 07/19/20 40340: Manual therapy completed Robert Leo, PT [address], [place], [address], [facility] 07/22/2024 20:06:51 07/17/20 97804 Therapeutic Exercise (1:1) completed Robert Leo, PT [address], [place], [address], [facility] 07/19/2024 08:58:43 09/17/20 24 97652: Manual therapy completed Robert Felipa, PT [address], [place], [address], [facility] 07/19/2024 08:58:43 07/11/20 24 56611 Therapeutic Exercise (1:1) completed Robert Felipa, PT [address], [place], [address], [facility] 07/15/2024 15:30:09 07/11/20 24 61933: Manual therapy completed Robert Felipa, PT [address], [place], [address], [facility] 07/15/2024 15:32:08 07/09/20 24 36330 Therapeutic Exercise (1:1) completed Robert Felipa, PT [address], [place], [address], [facility] 07/10/2024 23:49:53 07/09/20 24 05113: Low complexity PT Eval completed Robert Felipa, PT [address], [place], [address], [facility] 07/10/2024 23:49:56 06/13/20 24 Sports Knee 4&1 completed Mable Jackson PA-C [address], [place], [address], [facility] 06/13/2024 15:42:56 04/19/20 24 CARPAL TUNNEL RELEASE (SURG) completed BRYAN ROLLE [facility] 04/20/2024 12:17:18 02/20/20 24 Carpal Tunnel Kenalog 1cc injection, L/R completed Emma Zhang MD [address], [place], [address], [facility] 02/20/2024 10:58:15 Imaging Results Imaging Date Name Status LastModified by Organiz ation Details LastModified Time 08/22/2024 XR, lumbar spine, 2 view completed INTER[facility] [address], [place], [address], 08/22/2024 11:42:19 08/22/2024 XR, lumbar spine, 2 view completed INTERFACE [facility] [address], [place], [address], 08/22/2024 11:42:21 12/27/2024 XR, shoulder, 2 or more view completed INTERFACE [facility] [address], [place], [address], 12/27/2024 15:46:24 12/27/2024 XR, shoulder, 2 or more view completed INTER[facility] [address], [place], [address], 12/27/2024 15:46:26 Procedure Notes None recorded. Medical Equipment None Reported. Allergies Allergen ID Allergen Name Allergen Category Reaction Reaction Severity Criticality Documentation Date Start Date Code Code System Note Provider Name and Address Organization Details Recorded Time 376015 Product containin g 3-hydroxy -3-methyl glutaryl- coenzyme A reductase inhibitor (product) medicatio n Not available Not available Not available 01/02/20242020 72588 009 SNOMED Aller gyNam e: 'Stat ins'; Not Available [facility] 15:37:55 450164 Tree nut (substanc e) food,medi cation Not available Not available Not available 01/02/20242019 21522 03683 69697 SNOMED Not Available [facility] 15:37:55 597193 erythromy liang medicatio n Not available Not available Not available 01/02/20242020 4053 RxNorm Not Available [facility] 15:37:55 740882 codeine medicatio n Not available Not available Not available 01/02/20242020 2670 RxNorm Not Available [facility] 15:37:55 881263 terbinafi ne medicatio n Not available Not available Not available 08/22/2024 61079 RxNorm KAYLJUVENAL antoine [place] [facility] 11:14:37 Medications Name Sig Start Date Stop Date Status Note LastModified by Organization Details LastModified Time Prescriptio n - Prior Authorizati on Request active Not Available Not Available N ot Available losartan 50 mg tablet 08/22 completed Not Available Not Available Not Available celecoxib 200 mg capsule TAKE 1 CAPSULE BY MOUTH ONCE DAILY NEEDED FOR PAIN TAKE WITH FOOD DO NOT TAKE ADDITIONA L NSAIDS active Not Available Not Available No t Available ofloxacin 0.3 % eye drops TAKE 1 PACKAGE (OPHTHALM IC (EYE)) PER PACKAGE DIRECTION S 08/22 completed Not Available Not Available Not Available ondansetron HCl 4 mg tablet TAKE 1 TABLET BY MOUTH EVERY 8 HOURS FOR 10 DAYS NEEDED NAUSEA & VOMITING 08/22 completed Not Available Not Available Not Available fluorouraci l 5 % topical cream PLEASE SEE ATTACHED FOR DETAILED DIRECTION S 08/22 completed Not Available Not Available Not Available valacyclovi r 500 mg tablet TAKE 1 TABLET BY MOUTH EVERY DAY active Not Available Not Available No t Available tramadol 50 mg tablet TAKE 1 TABLET BY MOUTH 4 TIMES A DAY NEEDED FOR PAIN. DONT DRIVE WHILE TAKING THIS MED 08/22 completed Not Available Not Available Not Available triamcinolo ne acetonide 0.1 % topical cream APPLY TWICE DAILY TO AFFECTED AREAS ON UNDERARM AND CHEST X2 WEEKS. 08/22 completed Not Available Not Available Not Available amoxicillin 500 mg tablet TAKE 4 TABLETS AT ONCE PRIOR TO DENTAL PROCEDURE . active Not Available Not Available No t Available diazepam 2 mg tablet TAKE 1 TABLET BY MOUTH DAILY AT BEDTIME X28 DAYS active Not Available Not Available No t Available cephalexin 500 mg capsule TAKE 1 CAPSULE BY MOUTH FOUR TIMES A DAY FOR 10 DAYS 08/22 completed Not Available Not Available Not Available pantoprazol e 40 mg tablet,ashley yed release TAKE 1 TABLET BY MOUTH EVERY DAY 08/22 completed Not Available Not Available Not Available neomycin-po lymyxin-dex ameth 3.5 mg/mL-10,00 0 unit/mL-0.1 % eye drops PUT 1 DROP INTO BOTH EYES 4 TIMES A DAY FOR 10 DAYS 08/22 completed Not Available Not Available Not Available losartan 25 mg tablet TAKE 1 TABLET BY MOUTH EVERY DAY active Not Available Not Available No t Available sertraline 25 mg tablet TAKE 1 TABLET A DAY FOR 2 WEEKS AND THEN TAKE 2 TABLETS AFTERWARD S. active Not Available Not Available No t Available epinephrine 0.3 mg/0.3 mL injection, auto-inject or INJECT 0.3 MG INTRAMUSC ULARLY ONCE active Not Available Not Available No t Available fluocinonid e 0.05 % topical solution APPLY TO AFFECTED FLAKY/ITC HY AREAS ON SCALP TWICE A DAY TOLERATED . 08/22 completed Not Available Not Available Not Available scopolamine 1 mg over 3 days transdermal patch APPLY 1 PATCH EVERY 72 HOURS APPLY TO SKIN DIRECTED active Not Available Not Available No t Available morphine 15 mg immediate release tablet TAKE 1 TABLET BY MOUTH EVERY 4 - 6 HOURS NEEDED FOR SEVERE PAIN 08/22 completed Not Available Not Available Not Available amoxicillin 875 mg-potassiu m clavulanate 125 mg tablet TAKE 1 TABLET BY MOUTH EVERY 12 HOURS FOR 10 DAYS 08/22 completed Not Available Not Available Not Available oxycodone 5 mg tablet TAKE 1 TABLET BY MOUTH EVERY 6 HOURS NEEDED FOR PAIN 08/22 completed Not Available Not Available Not Available Low Dose Aspirin 81 mg tablet,ashley yed release Take 1 tablet every day by oral route. active Not Available Not Available No t Available ezetimibe 10 mg tablet TAKE 1 TABLET BY MOUTH EVERY DAY active Not Available Not Available No t Available cyclosporin e 0.05 % eye drops in a dropperette INSTILL 1 DROP INTO BOTH EYES TWICE A DAY 08/22 completed Not Available Not Available Not Available GaviLyte-G 236 gram-22.74 gram-6.74 gram-5.86 gram oral solution PER INSTRUCTI ONS FROM GI. 08/22 completed Not Available Not Available Not Available Eliquis 2.5 mg tablet TAKE 1 TABLET BY MOUTH TWO TIMES A DAY 08/22 completed Not Available Not Available Not Available Gel-One as directed One injection into each knee once to be administe red in drs office 09/27 completed Statu s: 'Disc ontin ued'; Not Available Not Available Not Available Repatha Syringe 140 mg/mL subcutaneou s syringe INJECT 1 PREFILLED SYRINGE SUBCUTANE OUSLY ONCE EVERY 2 WEEKS active Not Available Not Available No t Available Gelsyn-3 16.8 mg/2 mL intra-artic ular syringe 08/22 completed Not Available Not Available Not Available Yuvafem 10 mcg vaginal tablet TAKE 1 TABLET VAGINALLY TWICE WEEKLY 08/22 completed Not Available Not Available Not Available Yuvafem Yuvafem 10MCG Tablet 08/22 completed Statu s: 'Curr ent'; Not Available Not Available Not Available Intrarosa 6.5 mg vaginal insert UNWRAP AND INSERT 1 APPLICATO R VAGINALLY DAILY AT BEDTIME active Not Available Not Available No t Available Vitals Date Recorded Body height Body mass index (BMI) Body weight Provider Name and Address Organization Details Last Updated DateTime 08/22/2024 160.02 cm 25.3 kg/m2 54792.71 g JEREMY DUBON [facility] 08/22/2024 11:24:51 Date Recorded Body height Body mass index (BMI) Body weight Provider Name and Address Organization Details Last Updated DateTime 11/02/2024 160.02 cm 25.3 kg/m2 88985.71 g Aracelis xiong [facility] 11/02/2024 08:36:11 Date Recorded Body height Body mass index (BMI) Body weight Provider Name and Address Organization Details Last Updated DateTime 12/25/2024 160.02 cm 25.7 kg/m2 64335.89 g TINA NICHOLSON [facility] 12/25/2024 16:09:53 Date Recorded Body height Body mass index (BMI) Body weight Provider Name and Address Organization Details Last Updated DateTime 12/27/2024 160.02 cm 25.7 kg/m2 47503.89 g DARIAN BARRETO [facility] 12/27/2024 15:31:03 Social History Question Answer Notes LastModified by Organizat ion Details LastModified Time Tobacco Smoking Status Never Smoker JEREMY DUBON [facility] 08/22/2024 11:17:29 What Is Your Level Of Alcohol Consumption? None Information not available 08/22/2024 What Is Your Relationship Status? Information not available 08/22/2024 Do You Use Any Illicit Or Recreational Drugs? No Information not available 08/22/2024 Do You Or Have You Ever Used Any Other Forms Of Tobacco Or Nicotine? No Information not available 08/22/2024 Sex: Unknown Functional Status None recorded. Mental Status None recorded. Family History Nothing Reported. Medical History Condition Response Allergies/Hayfever N Coronary Artery Disease Y Breathing or lung disorders N Anxiety/Depression N Emphysema N Nerve Disorders N Thyroid Problems N COPD N Pacemaker N Kidney/Bladder Problems N Anemia N Vascular Disease N Heart Trouble N Gastrointestinal Disease N Heart Attack (IN) N Cholesterol Y Diabetes N Autoimmune disease N Bleeding Disorder N Inflammatory Joint disease N Orthotics N Arthritis Y Seizures/Epilepsy N Blood Clot N AIDS/HIV N Congestive Heart Failure (CHF) N Acid Reflux (GERD) N Cancer N Stroke N Asthma N Circulation Problems N Peripheral Vascular Disease N Sleep Apnea N Hepatitis N Heart Disease N Rheumatoid Arthritis N Arrhythmia N Pulmonary Embolism N Headaches N Fibromyalgia N Hypertension Y Osteoporosis N Gynecological HistoryNo gynecological history recorded. Obstetrics History GPAL:G 0 P 0 0 0 0 Past Encounters Encounter ID Performer Location Encounter Start Date Encounter Closed Date Diagnosis/Indication Diagnosis SNOMED-CT Code Diagnosis ICD10 Code Diagnosis Note [id number] Emma velez MD [facility] [address] [place] [address] 02/20/2024 09:49:08 03/10/2024 10:25:39 Carpal tunnel syndrome of right wrist [id number] 90989 G56.01 Mass of sk in of finger of left hand [id number] R22.32 Carpal giuseppe jeannette syndrome of left wrist [id number] 99038 G56.02 [id number] Mahsa Cortes, MARINAR/L,CHT [facility] [address] [place] [address] 05/02/2024 08:25:53 05/02/2024 09:04:13 Carpal tunnel syndrome of left wrist [id number] 83117 G56.02 Upon welcoming the patient from the waiting room into the clinic, I am able to observe how the involved extremity is used functional ly. The patient demonstrat es light avoids use of the surgical hand for such activities as gathering personal items, and adjusting the chair. The patient shared their personal experience over the last 2 weeks living with a postoperat damaris hand and modifying activities around the house. Fluctuatio ns in pain levels and the use of medication is also reviewed. The Band-Aid is removed. The surgical wound is inspected and found to be clean and dry. The edges of the incision are approximat ed with intact sutures. Patient has intact neurovascu lar structures with only slight tenderness at the incision. No surroundin g erythema, wound drainage, warmth or signs of infection. The patient states no pain when palpating around the surgical site and the surroundin g structures . The digits on the involved hand are able to demonstrat e a nearly full composite fist. Thumb is able to flex and oppose to the small finger. Digits are able to demonstrat e full extension/ hyperexten henna to open and flatten the palm. The wrist has nearly full flexion /extension /circumduc tion range of motion. The patient is able to demonstrat e both tip, tripod, and lateral pinch. The thenar muscle shows minimal atrophy. Strength of the first dorsal interossei /adductor is 3+/5. The distal sensation for light touch is assessed. The patient is able to demonstrat e a positive response to light touch. The patient reports difficulti es with fine sensation as related to dexterity tasks with the thumb, index, middle fingers. Postoperative care 14693 9007 Z48.89 Sutures are removed today without complicati on. Education regarding the involved anatomy and the surgical procedure was well received. Scar massage was demonstrat ed including a variety of movements to disperse the fibrotic tissue which, if untouched, would create a thickened area of scar. This is instructed with a handout given to the patient. Additional home exercises including tendon gliding and median nerve gliding were demonstrat ed in the office today with a handout also provided. A small amount of therapy putty was introduced and demonstrat ed with the correspond ing worksheet was provided as well. Further discussion about the MELT technique using a small ball for pillar pain with informatio n was provided. Per the surgeon , since there are no wound care complicati ons or concerns, no follow up appointmen t needed. The patient has been educated with a significan t Home Exercise Program to be completed over the next 2 weeks. The patient was instructed to contact the office if there should arise any concerns with the surgical site or if there is not sufficient functional recovery. All questions, with regards to return to functional activities , are answered prior to leaving the office today. This office visit was complete at 30 minutes. [id number] NINA Nolan [address] [place] [address] 06/13/2024 14:54:21 07/11/2024 11:18:04 History of right total knee replacement [id number] 796496 Z96.651 Osteoarthr itis of left knee joint 8314358320 82068 M17.12 [id number] Robert Felipa, PT [facility] [address] [place] [address] 07/09/2024 09:23:56 07/09/2024 10:29:59 Instability of joint of right knee [id number] 594987 M25.417 [id number] Robert Fleipa, PT [facility] [address] [place] [address] 07/11/2024 12:50:18 07/11/2024 14:10:13 Instability of joint of right knee [id number] 683693 M25.384 [id number] Robert Felipa, PT [facility] [address] [place] [address] 07/17/2024 12:21:55 07/17/2024 13:23:08 Instability of joint of right knee 4054246813 489689 M25.198 [id number] Robert Felipa, PT [facility] [address] [place] [address] 07/19/2024 12:26:30 07/19/2024 13:24:14 Instability of joint of right knee [id number] 192348 M25.961 [id number] Robert Felipa, PT [facility] [address] [place] [address] 08/01/2024 09:54:36 08/01/2024 11:01:47 Instability of joint of right knee [id number] M25.570 [id number] Robert Felipa, PT [facility] [address] [place] [address] 08/06/2024 10:22:16 08/06/2024 11:27:41 Instability of joint of right knee 4575396086 374757 M25.508 [id number] Mable Jackson PA-C [facility] [address] [place] [address] 08/08/2024 09:08:32 09/03/2024 15:23:47 History of right total knee replacement 0347814247 675272 Z96.252 [id number] Robert Leo, PT [facility] [address] [place] [address] 08/15/2024 09:56:37 08/15/2024 11:16:35 Instability of joint of right knee [id number] 600544 M25.456 [id number] Lianne Mead, TONAL REGULATOR [facility] [address] [place] [address] 08/22/2024 10:41:00 09/14/2024 17:08:00 Low back pain 045762795 M54.50 Lumbar spondylosis 28589 0009 M47.289 [id number] Emma velez MD [facility] [address] [place] [address] 08/27/2024 09:32:12 09/13/2024 14:05:06 Carpal tunnel syndrome of right wrist [id number] 86167 G56.01 [id number] Lianne Mead, TONAL REGULATOR [facility] [address] [place] [address] 11/02/2024 08:28:49 11/16/2024 15:25:22 Lumbar spondylosis 742240780 M47.816 Low back strain [id number] 1 S39.012D [id number] Charlie Parks PA-C [facility] [address] [place] [address] 12/25/2024 15:47:27 12/25/2024 16:14:40 Osteoarthritis of left knee joint [id number] 27676 M17.12 [id number] Rico Ordoñez MD [facility] [address] [place] [address] 12/27/2024 15:03:40 12/27/2024 17:16:41 Shoulder pain 17886153 M25.511 M25.512 Health Concerns Section Related Observation LastModified by Organization Detai ls LastModified Time None Recorded Concern Status LastModified by Organization Details LastModified Time None Recorded Advance Directives Directive None Recorded Payers Encounter Date Sequence Insurance Name Policy Number Policy Agarwal Covered Member ID Agarwal Member ID Guarantor Name 08/22/2024 2 [facility] (POS) [id number] Tanya Rosa [id number] Tanya Rosa 08/22/2024 1 [employer] 111 Tanya Rosa [id number] Tanya Rosa 08/27/2024 2 [facility] (POS) [id number] Tanya Rosa [id number] Tanya Rosa 08/27/2024 1 [employer] 111 Tanya Rosa [id number] Tanya Rosa 11/02/2024 2 [facility] (POS) [id number] Tanya Rosa [id number] Tanya Rosa 11/02/2024 1 [employer] [employer] 111 Tanya Rosa [id number] Tanya Rosa 12/25/2024 2 [facility] (POS) [id number] Tanya Rosa [id number] Tanya Rosa 12/25/2024 1 [employer] [employer] 111 Tanya Rosa [id number] Tanya Rosa 12/27/2024 2 [facility] (POS) [id number] Tanya Rosa [id number] Tanya Rosa 12/27/2024 1 [place] 111 Tanya Rosa [id number] Tanya Rosa Notes Date Note Type Note Provider Name and Address Organization Details Recorded Time 08/22/2024 text/html I am seeing the patient under the general supervision of Dr. Cabrera who was available but who did not see the patient. HPI: 64-year-old woman presents for evaluation of back pain. Back pain off/on for years with episodic pain requiring anti-inflammatories, muscle relaxers, and steroid packs. This time, pain started yesterday, no inciting event. Pain localized to the left flank and posterior hip. History of greater troch bursitis. Has been using ibuprofen, heat, CBD cream with little relief. Denies numbness or tingling or radicular symptoms into the legs. Denies bowel bladder incontinence or saddle anesthesia. RADICULITIS: none PFMSH and ROS have been reviewed, updated, and it is located in the patient's chart. PRIOR TREATMENTS/MEDICATIO NS: ibuprofen, muscle relaxers, medrol dose pack, heat, CBD cream, lidocaine patches WORK STATUS: administrative work MSK EXAM: examination of the lumbar spineTransitions: Patient able to arise from a seated position without difficulty.Gait: WNL, no limps detected, no assistive device. Able to balance on heels and tip toes, with minimal difficultyInspection :--- Erythema - none--- Edema - none--- Deformity - none--- Posture - neutral, slight forward leanTenderness:--- Spinous processes - none--- Paraspinal musculature - none--- SI joints - minimal tenderness below left SI jointROM:--- Lumbar spine:80% normal--- Full ROM to hips, knees, anklesLower extremity strength:--- LLE 5/5--- RLE 5/5Neurologic:--- 2+ DTRs--- Positive sensation to light moving touchSpecial tests:--- Mildly positive JULIET left--- Negative SLR bilaterally--- Negative ankle clonus bilaterally IMAGING: X rays ordered, obtained, and independently reviewed at [facility] today. 2 views lumbar spine reveals straightening of normal lordosis. Spondylosis with facet arthropathy and minimal disc space narrowing L5-S1. IMPRESSION: Lumbar spondylosis, muscular strain PLAN: Findings discussed with the patient today.1. Recommend physical therapy for lumbar stabilization. Patient reports she is in PT for her knees and they will not do 2 body areas. I gave her handouts for lumbar spine exercises and she is planning to join an exercise group ? Ibuprofen only helping a little bit so we will start Celebrex, which she has tolerated in the past. Medication education reviewed. We discussed muscle relaxer but she uses Valium 2 mg at bedtime. Will avoid muscle relaxer to avoid side effects. Discussed medrol dosepack, but her pain is not severe, and reasonable to try celebrex first. Also recommend topicals.- Discussed plan for conservative therapies before getting MRI FOLLOW UP: 8-10 weeks Speech recognition associate brand manager software was used to create portions of this document. An attempt at proofreading has been made to minimize errors. Please call for corrections. Lianne Mead CNP [address], [place], [address], [facility] 08/22/2024 13:36:00 08/27/2024 text/html 64 yo female joaquimo wn to me having undergone L CTR this summer, here today for f/u of R CTS, hoping for cortisone injection today. Last R CTS injection was in January 2024. She would like to plan for right carpal tunnel release surgery in December. She also reports today some occasional numbness in the left operative hand. This seems to happen at night. She denies any new problems with pain or weakness in the hand or daytime numbness. Emma Zhang MD [address], [place], [address], [facility] 08/27/2024 12:23:39 11/02/2024 text/html I am seeing the patient under the general supervision of Dr. Cabrera who was available but who did not see the patient. Clinical update 11/02/2024: Patient presents for recheck low back pain. Last seen 08/22/2024. Recommend physical therapy for lumbar stabilization, she was currently in physical therapy for her knees and they would only do 1 body area at a time. Today, reports completing home exercise program and joining a fitness club. Pain mostly resolved. Reports her back pain comes and goes and is episodic. Prefers the ibuprofen over the celebrex HPI: 64-year-old woman presents for evaluation of back pain. Back pain off/on for years with episodic pain requiring anti-inflammatories, muscle relaxers, and steroid packs. This time, pain started yesterday, no inciting event. Pain localized to the left flank and posterior hip. History of greater troch bursitis. Has been using ibuprofen, heat, CBD cream with little relief. Denies numbness or tingling or radicular symptoms into the legs. Denies bowel bladder incontinence or saddle anesthesia. RADICULITIS: none PFMSH and ROS have been reviewed, updated, and it is located in the patient's chart. PRIOR TREATMENTS/MEDICATIO NS: ibuprofen, muscle relaxers, medrol dose pack, heat, CBD cream, lidocaine patches WORK STATUS: administrative work MSK EXAM: examination of the lumbar spineTransitions: Patient able to arise from a seated position without difficulty.Gait: WNL, no limps detected, no assistive device.Inspection:-- - Posture - neutralROM:--- Lumbar spine: 80% normal--- Full ROM to hips, knees, anklesLower extremity strength:--- LLE 5/5--- RLE 5/5Neurologic:--- Positive sensation to light moving touch IMAGING:- 2 views lumbar spine reveals straightening of normal lordosis. Spondylosis with facet arthropathy and minimal disc space narrowing L5-S1. IMPRESSION: Lumbar spondylosis, muscular strain PLAN: Findings discussed with the patient today.-Back pain seems to resolved. No indication for further imaging at this time? Continue conservative measures. Discussed importance of back health maintenance to prevent episodic back pain? Return for any concerns and could consider lumbar spine MRI FOLLOW UP: diamond Speech recognition associate brand manager software was used to create portions of this document. An attempt at proofreading has been made to minimize errors. Please call for corrections. Lianne Mead, TONAL REGULATOR [address] [facility] [address] [facility], [place], [address], [facility] 11/02/2024 08:52:15 12/25/2024 text/html I am seeing the patient today under the supervision of Dr. Denney who was available but who did not see the patient. HPI:Patient presents today follow-up regarding their {{Left* Right Bi-lat eral}} knee. They have had difficulty up and down stairs sitting standing.previous injection about 5 months ago which gave her good relief up until recently. Problems ambulating. Kcgd-afb-mwtgazk medications are helping somewhat but not significantly. Pain is constant aching sometimes sharp pain with giving out sensations. Past family, medical, social history and review of systems has been reviewed, updated and is located in the patient? s chart. Examination:The patient is well appearing and in no apparent distress. Alert and oriented x3. Gait is symmetric. Examination of the {{Left* Right Bi-lat eral}} knee reveals no evidence of any edema, erythema, or warmth. No Deformity. Range of motion of the knee limited with mild discomfort at the end ranges. No effusion. Does have some tenderness to palpation about the medial hemijoint line. No tenderness to palpation about the lateral hemijoint line. Patellofemoral crepitus is noted. mild lateral ligamentous laxity. Negative Jeff? s . Calf is supple and nontender. Neurovascularly intact distally. Impression:{{Left* R ight Bi-lateral}} Knee osteoarthritis Plan:We discussed the role of conservative management including medications, physical therapy, injection and bracing. At this point the patient was to proceed with injection. Please see procedure note. They will follow up with us as scheduled. Charlie Parks PA-C [address] [facility] [address], [place], [address], [place] [facility] 12/25/2024 16:14:38 OBGyn Episode No OBEpisode recorded.
--- OUTSIDE RECORDS SUMMARY | 2025-01-08 19:35 | XMS_ITS | Continuity of Care Document ---
Author Organization [facility] Adult Address [address] [place] [address]- Care Team Providers Care Pharmacy Aide Name Role Phone Apolonia Sykes Primary Care Physician Encounter [facility] [place] Date(s): 11/12/24 - 12/12/24 [facility] [address], [place] [address] Encounter Type: Triage Allergies, Adverse Reactions, Alerts Substance Criticality Severity Reaction Reaction Severity Status codeine Active erythromycin Active lisinopril 1 Active terbinafine topical Unknown Active HMG-CoA reductase inhibitors Active Nuts Terbinafine allergy Active Rosuvastatin Calcium Active terbinafine Active 1cough Immunizations Given and Recorded Vaccine Date Status Refusal Reason influenza virus vaccine, inactivated 09/14/24 Sam rded influenza virus vaccine, inactivated 08/03/23 Sam rded influenza virus vaccine, inactivated 08/11/22 Sam rded influenza virus vaccine, inactivated 07/27/21 Sam rded influenza virus vaccine, inactivated 08/01/20 Sam rded influenza virus vaccine, inactivated 07/30/15 Sam rded influenza virus vaccine, inactivated 07/17/13 Sam rded influenza virus vaccine, inactivated 08/12/12 Sam rded influenza virus vaccine, inactivated 07/31/11 Sam rded influenza virus vaccine, inactivated 07/16/09 Sam rded influenza virus vaccine, inactivated 09/01/08 Sam rded influenza virus vaccine, inactivated 09/30/07 Sam rded influenza virus vaccine, inactivated 10/01/06 Sam rded influenza virus vaccine, inactivated 09/04/05 Sam rded influenza virus vaccine, inactivated 09/05/03 Sam rded influenza virus vaccine, inactivated 08/18/02 Sam rded influenza virus vaccine, inactivated 10/05/97 Sam rded influenza virus vaccine, inactivated 02/09/96 Sam rded SARS-CoV-2(COVID-19)mRNA-LNP vac([id number]) 09/14/24 Recorded [id number] 12y+ bivalent booster vax 08/03/23 Recorded RSV vaccine preF3, recombinant 08/03/23 Recorded tetanus-diphtheria toxoids (Td) 09/14/22 Recorded tetanus-diphtheria toxoids (Td) 02/26/04 Recorded tetanus-diphtheria toxoids (Td) 07/01/94 Recorded [id number] bivalent booster vax 08/11/22 Recorded SARS-CoV-2 (COVID-19) mRNA-1273 vaccine 02/09/22 R ecorded SARS-CoV-2 (COVID-19) mRNA-1273 vaccine 08/24/21 R ecorded zoster vaccine, inactivated 10/05/21 Recorded zoster vaccine, inactivated 06/23/21 Recorded SARS-CoV-2 (COVID-19) mRNA BNT-162b2 vac 02/22/21 Recorded SARS-CoV-2 (COVID-19) mRNA BNT-162b2 vac 01/30/21 Recorded Zoster Vaccine Live 11/18/15 Recorded hepatitis B pediatric vaccine 11/09/14 Recorded hepatitis B pediatric vaccine 06/07/14 Recorded hepatitis B pediatric vaccine 04/20/14 Recorded tetanus/diphtheria/pertussis, acel(Tdap) 08/12/12 Recorded Typhoid Vaccine, Inactivated 09/05/03 Recorded Typhoid Vaccine, Inactivated 09/20/98 Recorded Typhoid Vaccine, Inactivated 07/01/94 Recorded Meningococcal Conjugate Vaccine 04/18/00 Recorded Yellow Fever Vaccine 02/21/99 Recorded Yellow Fever Vaccine 11/03/79 Recorded Measles/Mumps/Rubella Virus Vaccine 09/23/98 Recor ded Hepatitis A Adult Vaccine 06/07/98 Recorded Hepatitis A Adult Vaccine 10/05/97 Recorded Medications EpiPen 2-Viral 0.3 mg injectable kit = 0.3 mg, Intramuscular, Once, # 1 each, 1 Refills, Soft Stop, 05/25/23 7:36:00 AM EDT, [facility]/pharmacy#[id number], Okay to fill brand covered by insurance., 158.8, cm, 05/24/23 10:04:00 EDT, Height, 66.3, kg, 05/24/23 10:04:00 EDT, Dry Weight Start Date: 05/25/23 Status: Ordered Quantity: 1.0 Unit: each Repeat number: 2 evolocumab 140 mg/mL subcutaneous solution = 140 mg, Subcutaneous Injection, Every 14 days, # 2 each, 3 Refills, Maintenance, 04/24/24 4:40:00 PM EDT, [facility]/pharmacy #[id number], Partial fill upon patient request if the prescription is for a schedule II opioid drug., 159, cm, 04/18/24 12:49:00 EDT, Height, 66.1, kg, 09/15/23 15:22:00 EST, Dry Weight Start Date: 04/24/24 Status: Ordered Quantity: 2.0 Unit: each Repeat number: 4 ezetimibe 10 mg oral tablet 1 tablet = 10 mg, By Mouth, Daily, # 90 tablet, 3 Refills, Maintenance, 04/18/24 12:57:00 PM EDT, Tablet, [facility]/pharmacy #[id number], Partial fill upon patient request if the prescription is for a schedule IIopioid drug., 159, cm, 04/18/24 12:49:00 EDT, Height, 66.1, kg, 09/15/23 15:22:00 EST, Dry Weight Start Date: 04/18/24 Status: Ordered Quantity: 90.0 Unit: tablet Repeat number: 4 Intrarosa 6.5 mg vaginal insert 1 application, Vaginally, Daily at bedtime, # 28 Unknown, 12 Refills, Maintenance, 09/03/24 9:00:00 AM EST, [facility]/pharmacy #[id number], 159, cm, 09/03/24 8:28:00 EST, Height, 66.1, kg, 09/15/23 15:22:00 EST, Dry Weight Start Date: 09/03/24 Status: Ordered Quantity: 28.0 Unit: Unknown Repeat number: 13 Indication: Other specified menopausal and perimenopausal disorders losartan 25 mg oral tablet 25 mg, 1, tablet, By Mouth, Daily, # 90 tablet, Refills 3, Tot. Refills 3, Maintenance, 11/06/24 1:03:00 PM EST, Route to Pharmacy Electronically, [facility]/pharmacy #[id number], Partial fill upon patient request if the prescription is for a schedule II opioid drug., 159.6, cm, 11/06/24 12:51:00 EST, Height, 66.1, kg, 09/15/23 15:22:00 EST, Dry Weight Start Date: 11/06/24 Status: Ordered Quantity: 90.0 Unit: tablet Repeat number: 4 scopolamine 1 mg/72 hr transdermal film, extended release See Instructions, 1 patch Every 72 hours apply to skin, # 10 patch, 0 Refills, Acute 01/04/25 12:00:00 PM EST, 11/06/24 1:05:00 PM EST, [facility]/pharmacy #[id number], Partial fill upon patient request if the prescription is for a schedule II opioid drug., 1 patch Every 72 hours; apply to skin, 159.6, cm, 11/06/2511:51:00 EST, Height, 66.1, kg, 09/15/23 15:22:00 EST, Dry Weight Start Date: 11/06/24 Stop Date: 01/04/25 Status: Ordered Quantity: 10.0 Unit: patch Repeat number: 1 sertraline 25 mg oral tablet 1 tablet = 25 mg, By Mouth, Daily, Take 1 tablet a day for 2 weeks and then take 2 tablets afterwards., # 180 tablet, 0 Refills, Maintenance, 11/06/24 1:11:00 PM EST, [facility]/pharmacy #[id number], Partial fill upon patient request if the prescription is for a schedule II opioid drug., 159.6, cm, 11/06/24 12:51:00 EST, Height, 66.1, kg, 09/15/23 15:22:00 EST, Dry Weight Start Date: 11/06/24 Stop Date: 02/04/25 Status: Ordered Quantity: 180.0 Unit: tablet Repeat number: 1 valACYclovir 500 mg oral tablet 1, tablet, By Mouth, Daily, # 90 tablet, Refills 3, Tot. Refills 3, Maintenance, 09/03/24 9:00:00 AMEST, Route to Pharmacy Electronically, [facility]/pharmacy #[id number], 159, cm, 09/03/24 8:28:00 EST, Height, 66.1, kg, 09/15/23 15:22:00 EST, Dry Weight Start Date: 09/03/24 Status: Ordered Quantity: 90.0 Unit: tablet Repeat number: 4 Indication: Herpesviral infection of urogenital system, unspecified Problem List Condition Confirmation Course Effective Dates Status Health Status Informant Actinic keratosis Confirmed Active Anxiety Confirmed Active Basal cell carcinoma Confirmed Active Degenerative arthritis of knee, bilateral Confirmed Active Shoulder bursitis Confirmed Active CTS (carpal tunnel syndrome) Confirmed Active Chest pain Confirmed Active Interstitial cystitis Confirmed Active Interstitial cystitis Confirmed Active Coronary artery disease Confirmed Active Diverticulosis Confirmed Active Family history of early CAD Confirmed Active Liver hemangioma Confirmed Active History of basal cell carcinoma Confirmed Active Hypercholesteremia Confirmed Active Hyperlipidemia Confirmed Active Hypertension Confirmed Active Internal hemorrhoid Confirmed Active Melanoma - Right axilla lymph node Confirmed Active Osteoarthritis of knee Confirmed Active Vitamin D deficiency Confirmed Active Social History Social History Type Response Smoking Status Never (less than 100 in lifetime) entered on: 04/28/21 Sex Sex Representation Female (finding) Patient Care team information Care Team Personnel Name: Apolonia Sykes Position: [facility] Associate Professional Member Role: PCP Address: [address] [place] [address]- Telecom: Name: Sully Salinas RN Position: S RN Member Role: Primary Care Nurse Name: Ammy Medina RN Position: S RN Member Role: Primary Care Nurse Name: Edgard Sales RN Position: S RN Member Role: Primary Care Nurse Care Team Related Persons Name: STEPHIE NAJERA Insurance Providers Guarantor name: ELIEL NAJERA Health Plan Information #: 1 Payer: [employer] Member Number: NA Policy Number: NA Group Number: NA Health Plan Information #: 2 Payer: NA Member Number: NA Policy Number: NA Group Number: NA
--- OUTSIDE RECORDS SUMMARY | 2025-01-08 19:36 | XMS_ITS | Continuity of Care Document ---
Author Organization [facility] Adult Address [address] [place] [address]- Care Team Providers Care Breakdown Person Name Role Phone Apolonia Sykes Primary Care Physician [place] [facility] [place] 12/08/24 [facility] [address], [place] [address] Encounter Type: Triage Allergies, Adverse Reactions, Alerts Substance Criticality Severity Reaction Reaction Severity Status codeine Active erythromycin Active HMG-CoA reductase inhibitors Active Rosuvastatin Calcium Active lisinopril 1 Active terbinafine topical Unknown Active terbinafine Active Nuts Terbinafine allergy Active 1cough Immunizations Given and Recorded Vaccine [...] virus vaccine, inactivated 02/09/96 Sam rded SARS-CoV-2(COVID-19)mRNA-LNP vac([id number]) 09/14/24 Recorded [id number] 12y+ bivalent booster vax 08/03/23 Recorded RSV vaccine preF3, recombinant 08/03/23 Recorded tetanus-diphtheria toxoids (Td) 09/14/22 Recorded tetanus-diphtheria toxoids (Td) 02/26/04 Recorded tetanus-diphtheria toxoids (Td) 07/01/94 Recorded [id number] bivalent booster vax 08/11/22 Recorded SARS-CoV-2 (COVID-19) [...] Refills, Soft Stop, 05/25/23 7:36:00 AM EDT, [facility]/pharmacy#[id number], Okay to fill brand covered by insurance., 158.8, cm, 05/24/23 10:04:00 EDT, Height, 66.3, kg, 05/24/23 10:04:00 EDT, Dry Weight Start Date: 05/25/23 Status: Ordered Quantity: 1.0 Unit: each Repeat number: 2 evolocumab 140 mg/mL subcutaneous solution = 140 mg, Subcutaneous Injection, Every 14 days, # 2 each, 3 Refills, Maintenance, 04/24/24 4:40:00 PM EDT, [facility]/pharmacy #[id number], Partial fill upon patient request if [...] Refills, Maintenance, 04/18/24 12:57:00 PM EDT, Tablet, [facility]/pharmacy #[id number], Partial fill upon patient request if the prescription is for a schedule IIopioid drug., 159, cm, 04/18/24 12:49:00 EDT, Height, 66.1, kg, 09/15/23 15:22:00 EST, Dry Weight Start Date: 04/18/24 Status: Ordered Quantity: 90.0 Unit: tablet Repeat number: 4 Intrarosa 6.5 mg vaginal insert 1 application, Vaginally, Daily at bedtime, # 28 Unknown, 12 Refills, Maintenance, 09/03/24 9:00:00 AM EST, [facility]/pharmacy #[id number], 159, cm, 09/03/24 8:28:00 EST, Height, 66.1, kg, 09/15/23 15:22:00 EST, Dry Weight Start Date: 09/03/24 Status: Ordered Quantity: 28.0 Unit: Unknown Repeat number: 13 Indication: Other specified menopausal and perimenopausal disorders losartan 25 mg oral tablet 25 mg, 1, tablet, By Mouth, Daily, # 90 tablet, Refills 3, Tot. Refills 3, Maintenance, 11/06/24 1:03:00 PM EST, Route to Pharmacy Electronically, [facility]/pharmacy #[id number], Partial fill upon patient request if [...] 12:00:00 PM EST, 11/06/24 1:05:00 PM EST, [facility]/pharmacy #[id number], Partial fill upon patient request if [...] 0 Refills, Maintenance, 11/06/24 1:11:00 PM EST, [facility]/pharmacy #[id number], Partial fill upon patient request if [...] 09/03/24 9:00:00 AMEST, Route to Pharmacy Electronically, [facility]/pharmacy #[id number], 159, cm, 09/03/24 8:28:00 EST, Height, 66.1, kg, 09/15/23 15:22:00 EST, Dry Weight Start Date: 09/03/24 Status: Ordered Quantity: 90.0 Unit: tablet Repeat number: 4 Indication: Herpesviral infection of urogenital system, unspecified Valium 2 mg oral tablet 2 mg, 1, tablet, By Mouth, Daily at bedtime, for 28 days, # 28 tablet, Refills 0, Tot. Refills 0, Acute 12/12/24 9:22:00 AM EST, 11/14/24 9:22:00 AM EST, Route to Pharmacy Electronically, [facility]/pharmacy #[id number], [place] for early refill, 159.6, cm, 11/06/24 12:51:00 EST, Height, 66.1, kg, 09/15/23 15:22:00 EST, Dry Weight Start Date: 11/14/24 Stop Date: 12/12/24 Status: Ordered Quantity: 28.0 Unit: tablet Repeat number: 1 Valium 2 mg oral tablet 2 mg, 1, tablet, By Mouth, Daily at bedtime, for 28 days, # 28 tablet, Refills 0, Tot. Refills 0, Acute 12/12/24 9:54:00 AM EST, 11/14/24 9:54:00 AM EST, [id number], 159.6, cm, 11/06/24 12:51:00 EST, Height, 66.1, kg, 09/15/23 15:22:00 EST, Dry Weight Start Date: 11/14/24 Stop Date: 12/12/24 Status: Ordered Quantity: 28.0 Unit: tablet Repeat number: 1 Problem List Condition Confirmation Course Effective Dates [...] Care Team Personnel Name: Apolonia Sykes Position: [facility] Associate Professional Member Role: PCP Address: [address] [place] [id number] Telecom: Name: Sully Salinas RN Position: S RN Member Role: Primary Care Nurse Name: Ammy Medina RN Position: [facility] RN Member Role: Primary Care Nurse Name: Edgard Sales RN Position: [facility] RN Member Role: Primary Care Nurse Care Team Related Persons Name: STEPHIE NAJERA Insurance Providers Guarantor name: ELIEL NAJERA Health Plan Information #: 1 Payer: [employer] Member Number: NA Policy Number: NA Group Number: NA Health Plan Information #: 2 Payer: NA Member Number: NA Policy Number: NA Group Number: NA
--- OUTSIDE RECORDS SUMMARY | 2025-01-08 19:36 | XMS_ITS | Continuity of Care Document ---
Author Organization [facility], ROSA ISELA Worrell 2nd floor Address [address] [place] [address] [address] Project Manager Name Role Phone ANGELI GOLD Primary Care Provider Assessment Encounter Date Assessment Date Assessment LastModified by Organization Details LastModified Time 12/27/2024 12/27/2024 Chief Complaint: Bilateral shoulder pain, [...] grossly intact. Eyes: Sclera are not blue. skeins yarn examiner II-XII are grossly intact. Full extraocular [...] Imaging: X-rays ordered, obtained and reviewed at [facility]. These images included 3 views of [...] a low-dose oral anti-inflammatory such as ibuprofen opuh-oqs-iidlfcb and/or Tylenol as needed. Should symptoms fail [...] visit note. This note was generated with [facility] speech recognition regional economist dictation software. Please excuse any errors that may have been overlooked during review of this note. Sometimes, these errors may affect the content or meaning of a given sentence. Please call for corrections. [email or web address] Not available 12/27/2024 17:16:02 Plan of Treatment [...] recorde d. Procedures None recorde d. Surgeries None recorde d. Imaging XR, shoulde r, 2 or more view - rm 219 b/l shldr cz protoco l [address] [facility] Office, [address], [facility] [address], [place], [address], 12/27/2024 16:32:40 Medication Orders None recorde d. Patient TargetsNo targets recorded. Patient InstructionsNo instructions recorded. Reason for Referral None Reported. Results Created Date Observation Date Name Description Value Unit Range Abnormal Flag Note LastModifiedBy Organization Detail LastModifiedTime 12/27/19 25 12/27/2024 XR, shoul sruthi, 2 or more view [email or web address] ?Encry pted=s hAaTro YD8dLq bEUv6g %2BXZw aYqtaq 0bqfl% 2Fg9IQ a4ajBk vP9nXo QUaueC m3YtLR FvZlgJ JJ8mAn HZtai3 5h8993 AC0Kqb XiGU6C hKiQtr MwF INTERFACE [facility] [address] [facility] [address], [place], [address], 12/27/2024 15:46:24 12/27/19 25 12/27/2024 XR, shoul sruthi, 2 or more view [email or web address] ?Encry pted=s hAaTro YD8dLq bEUv6g %2BXZw aYqtaq 0bqfl% 2Fg9IQ a4ajBk vP9nXo QUaueC m3YtLR FvZlgJ JJ8mAn HZtai3 5a7457 AC0Kqb XiGU6C hKiQtr MwF INTERFACE [facility] Office [address] [facility], [place], [address], 12/27/2024 15:46:26 Result Notes None recorded. Problems Name Problem SNOMED Code Status Onset Date Resolution Date Notes Provider Name and Address Organization Details Recorded Time Instabilit y of joint of right knee 4773843815093 102 Active 2023 APOLINAR antoine [place] - [facility] 4 15:33:12 Low back pain 616531526 Active 2023 JEREMY MCLAUGHLINCECILLE antoine, [facility] 4 11:25:19 Pain of joint of knee 1724169524 Active 2022 Status : 'A'; Not Available [facility] 4 11:57:38 Problem Notes None recorded. Procedures Surgical History Date Name Laterality Status Provider Name and Address Organization Details Recorded Time 12/27/19 25 Sports Shoulder Bilateral completed Rico Ordoñez MD [address], [place], [address], [facility], [facility] 12/27/2024 17:16:10 12/25/19 Sports Knee 4&1 completed Charlie Parks PA-C [address], [place], [address], [facility], [facility] 12/25/2024 16:14:24 08/27/20 Carpal Tunnel Kenalog 1cc injection, L/R completed Emma Zhang MD [address], [place], [address], [facility], [facility] 08/23/2024 13:12:28 08/15/20 21209 Therapeutic Exercise (1:1) completed Tory Srinivasan BULLET LUBRICANT MIXER [address], [place], [address], [facility], [facility] 08/15/2024 09:58:53 08/15/20 56139: Manual therapy completed Tory Srinivasan BULLET LUBRICANT MIXER [address], [place], [address], [facility], [facility] 08/15/2024 09:58:53 08/06/20 66299 Therapeutic Exercise (1:1) completed Tory Srinivasan BULLET LUBRICANT MIXER [address], [place], [address], [facility], [facility] 08/06/2024 10:26:33 08/06/20 27024: Manual therapy completed Tory Formejester, BULLET LUBRICANT MIXER [address], [place], [address], [facility], [facility] 08/06/2024 10:26:33 08/01/20 56032 Therapeutic Exercise (1:1) completed Tory Srinivasan, BULLET LUBRICANT MIXER [address], [place], [address], [facility], [facility] 08/01/2024 09:37:46 08/01/20 71143: Manual therapy completed Tory Srinivasan, BULLET LUBRICANT MIXER [address], [place], [address], [facility], [facility] 08/01/2024 09:37:46 07/19/20 06036 Therapeutic Exercise (1:1) completed Robert Leo, PT [address], [place], [address], [facility], [facility] 07/22/2024 20:06:51 07/19/20 22288: Manual therapy completed Robert Mooreo, PT [address], [place], [address], [facility], [facility] 07/22/2024 20:06:51 07/17/20 74607 Therapeutic Exercise (1:1) completed Robert Mooreo, PT [address], [place], [address], [facility], [facility] 07/19/2024 08:58:43 07/17/20 32130: Manual therapy completed Robert Felipa, PT [address], [place], [address], [facility], [facility] 07/19/2024 08:58:43 07/11/20 24 84558 Therapeutic Exercise (1:1) completed Robert Felipa, PT [address], [place], [address], [facility], [facility] 07/15/2024 15:30:09 07/11/20 06065: Manual therapy completed Robert Leo, PT [address], [place], [address], [facility], [facility] 07/15/2024 15:32:08 07/09/20 24 35349 Therapeutic Exercise (1:1) completed Robert Leo, PT [address], [place], [address], [facility], [facility] 07/10/2024 23:49:53 07/09/20 24 40329: Low complexity PT Eval completed Robert Leo, PT [address], [place], [address], [facility], [facility] 07/10/2024 23:49:56 06/13/20 24 Sports Knee 4&1 completed Mable Jackson PA-C [address], [place], [address], [facility], [facility] 06/13/2024 15:42:56 04/19/20 24 CARPAL TUNNEL RELEASE (SURG) completed BRYAN ROLLE [facility] 04/20/2024 12:17:18 02/20/20 24 Carpal Tunnel Kenalog 1cc injection, L/R completed Emma Zhang MD [address], [place], [address], [facility], [facility] 02/20/2024 10:58:15 Imaging Results None recorded. Procedure Notes None recorded. Medical Equipment None Reported. Allergies Allergen ID Allergen Name Allergen Category Reaction Reaction Severity Criticality Documentation Date Start Date Code Code System Note Provider Name and Address Organization Details Recorded Time 835416 Product containin g 3-hydroxy -3-methyl glutaryl- coenzyme A reductase inhibitor (product) medicatio n Not available Not available Not available 01/02/20242020 27220 009 SNOMED Aller gyNam e: 'Stat ins'; Not Available [facility] 15:37:55 065355 Tree nut (substanc e) food,medi cation Not available Not available Not available 01/02/20242019 16730 70834 01517 SNOMED Not Available [facility] 15:37:55 375770 erythromy liang medicatio n Not available Not available Not available 01/02/20242020 4053 RxNorm Not Available [facility] 4 15:37:55 833220 codeine medicatio n Not available Not available Not available 01/02/20242020 2670 RxNorm Not Available [facility] 4 15:37:55 395287 terbinafi ne medicatio n Not available Not available Not available 08/22/2024 99033 RxNorm JEREMY antoine [place] - [facility] 4 11:14:37 Medications Name Sig Start Date Stop [...] Updated DateTime 12/27/2024 160.02 cm 25.7 kg/m2 66779.89 g DARIAN BARRETO [facility] 12/27/2024 15:31:03 Social History Question Answer Notes LastModified by Organizat ion Details LastModified Time Tobacco Smoking Status Never Smoker JEREMY antoine [facility] 08/22/2024 11:17:29 What Is Your Level Of [...] History Nothing Reported. Medical History Condition Response Coronary Artery Disease Y Anxiety/Depression N Emphysema N COPD N Pacemaker N Vascular Disease N Heart Trouble N Gastrointestinal Disease N Autoimmune disease N Inflammatory Joint disease N Orthotics N Arthritis Y Blood Clot N Acid Reflux (GERD) N Cancer N Stroke N Circulation Problems N Rheumatoid Arthritis N Arrhythmia N Headaches N Fibromyalgia N Allergies/Hayfever N Breathing or lung disorders N Nerve Disorders N Thyroid Problems N Kidney/Bladder Problems N Anemia N Heart Attack (ID) N Cholesterol Y Diabetes N Bleeding Disorder N Seizures/Epilepsy N AIDS/HIV N Congestive Heart Failure (CHF) N Asthma N Peripheral Vascular Disease N Sleep Apnea N Hepatitis N Heart Disease N Pulmonary Embolism N Hypertension Y Osteoporosis N Gynecological HistoryNo gynecological history recorded. Obstetrics History GPAL:G 0 P 0 0 0 0 Past Encounters Encounter ID Performer Location Encounter Start Date Encounter Closed Date Diagnosis/Indication Diagnosis SNOMED-CT Code Diagnosis ICD10 Code Diagnosis Note [id number] NINA Isbell [address] [place] [address] 12/25/2024 15:47:27 12/25/2024 16:14:40 Osteoarthritis of left knee joint 0509134270 38922 M17.12 [id number] MD ROSA ISELA Augustin 2nd floor [address] [place] [address] 12/27/2024 15:03:40 12/27/2024 17:16:41 Shoulder pain 80214954 M25.511 M25.512 Health Concerns Section Related Observation LastModified by Organization Detai ls LastModified Time None Recorded Concern Status LastModified by Organization Details LastModified Time None Recorded Payers Encounter Date Sequence Insurance Name Policy Number Policy Agarwal Covered Member ID Agarwal Member ID Guarantor Name 12/27/2024 2 [facility] (POS) [id number] Tanya Rosa [id number] Tanya Rosa 12/27/2024 1 [place] [employer] 111 Tanya Rosa [id number] Tanya Rosa OBGygaviota Episode No OBEpisode recorded.
--- OUTSIDE RECORDS SUMMARY | 2025-01-08 19:36 | XMS_ITS | Continuity of Care Document ---
Author Organization [facility] Adult Address [address] [place] [address]- Care Team Providers Care Quality Intern Name Role Phone Apolonia Sykes Primary Care Physician Encounter [facility] Date(s): 11/13/24 - 12/13/24 [facility] Adult [address], [place] [address] Encounter Type: Triage Allergies, Adverse Reactions, Alerts Substance Criticality Severity Reaction Reaction Severity Status codeine Active erythromycin Active lisinopril 1 Active HMG-CoA reductase inhibitors Active Rosuvastatin Calcium Active terbinafine topical Unknown Active terbinafine Active [...] virus vaccine, inactivated 02/09/96 Sam rded SARS-CoV-2(COVID-19)mRNA-LNP vac(hnz509) 09/14/24 Recorded [id number] 12y+ bivalent booster vax 08/03/23 Recorded RSV vaccine preF3, recombinant 08/03/23 Recorded tetanus-diphtheria toxoids (Td) 09/14/22 Recorded tetanus-diphtheria toxoids (Td) 02/26/04 Recorded tetanus-diphtheria toxoids (Td) 07/01/94 Recorded [id number] bivalent booster vax 08/11/22 Recorded SARS-CoV-2 (COVID-19) [...] Refills, Soft Stop, 05/25/23 7:36:00 AM EDT, [facility]/pharmacy#[id number], Okay to fill brand covered by insurance., 158.8, cm, 05/24/23 10:04:00 EDT, Height, 66.3, kg, 05/24/23 10:04:00 EDT, Dry Weight Start Date: 05/25/23 Status: Ordered Quantity: 1.0 Unit: each Repeat number: 2 evolocumab 140 mg/mL subcutaneous solution = 140 mg, Subcutaneous Injection, Every 14 days, # 2 each, 3 Refills, Maintenance, 04/24/24 4:40:00 PM EDT, [facility]/pharmacy #[id number], Partial fill upon patient request if [...] Refills, Maintenance, 04/18/24 12:57:00 PM EDT, Tablet, [facility]/pharmacy #[id number], Partial fill upon patient request if the prescription is for a schedule IIopioid drug., 159, cm, 04/18/24 12:49:00 EDT, Height, 66.1, kg, 09/15/23 15:22:00 EST, Dry Weight Start Date: 04/18/24 Status: Ordered Quantity: 90.0 Unit: tablet Repeat number: 4 Intrarosa 6.5 mg vaginal insert 1 application, Vaginally, Daily at bedtime, # 28 Unknown, 12 Refills, Maintenance, 09/03/24 9:00:00 AM EST, [facility]/pharmacy #[id number], 159, cm, 09/03/24 8:28:00 EST, Height, 66.1, kg, 09/15/23 15:22:00 EST, Dry Weight Start Date: 09/03/24 Status: Ordered Quantity: 28.0 Unit: Unknown Repeat number: 13 Indication: Other specified menopausal and perimenopausal disorders losartan 25 mg oral tablet 25 mg, 1, tablet, By Mouth, Daily, # 90 tablet, Refills 3, Tot. Refills 3, Maintenance, 11/06/24 1:03:00 PM EST, Route to Pharmacy Electronically, [facility]/pharmacy #[id number], Partial fill upon patient request if [...] 12:00:00 PM EST, 11/06/24 1:05:00 PM EST, [facility]/pharmacy #[id number], Partial fill upon patient request if [...] 0 Refills, Maintenance, 11/06/24 1:11:00 PM EST, [facility]/pharmacy #[id number], Partial fill upon patient request if [...] 09/03/24 9:00:00 AMEST, Route to Pharmacy Electronically, [facility]/pharmacy #[id number], 159, cm, 09/03/24 8:28:00 EST, Height, [...] PCO Associate Professional Member Role: PCP Address: [address] [place] [address]- Telecom: Name: Sully Salinas RN Position: S [...]
--- OUTSIDE RECORDS SUMMARY | 2025-01-08 19:36 | XMS_ITS | Continuity of Care Document ---
Author Organization [facility] Adult Address [address] [place] [address]- Care Team Providers Care Cleaner And Preparer Name Role Phone Apolonia Sykes Primary Care Physician Encounter [facility] Date(s): 11/13/24 - 12/13/24 [facility] Adult [address] [place], [place] [address] Encounter Type: Triage Allergies, Adverse Reactions, Alerts Substance Criticality Severity Reaction Reaction Severity Status codeine Active erythromycin Active lisinopril 1 Active terbinafine topical Unknown Active terbinafine Active HMG-CoA reductase inhibitors Active Nuts Terbinafine allergy Active Rosuvastatin Calcium Active 1cough Immunizations Given and Recorded Vaccine [...] virus vaccine, inactivated 02/09/96 Sam rded SARS-CoV-2(COVID-19)mRNA-LNP vac([id number]) 09/14/24 Recorded [id number] 12y+ bivalent booster vax 08/03/23 Recorded RSV vaccine preF3, recombinant 08/03/23 Recorded tetanus-diphtheria toxoids (Td) 09/14/22 Recorded tetanus-diphtheria toxoids (Td) 02/26/04 Recorded tetanus-diphtheria toxoids (Td) 07/01/94 Recorded [id number] bivalent booster vax 08/11/22 Recorded SARS-CoV-2 (COVID-19) [...] Refills, Soft Stop, 05/25/23 7:36:00 AM EDT, [facility]/pharmacy#[id number], Okay to fill brand covered by insurance., 158.8, cm, 05/24/23 10:04:00 EDT, Height, 66.3, kg, 05/24/23 10:04:00 EDT, Dry Weight Start Date: 05/25/23 Status: Ordered Quantity: 1.0 Unit: each Repeat number: 2 evolocumab 140 mg/mL subcutaneous solution = 140 mg, Subcutaneous Injection, Every 14 days, # 2 each, 3 Refills, Maintenance, 04/24/24 4:40:00 PM EDT, [facility]/pharmacy #[id number], Partial fill upon patient request if [...] Refills, Maintenance, 04/18/24 12:57:00 PM EDT, Tablet, [facility]/pharmacy #[id number], Partial fill upon patient request if the prescription is for a schedule IIopioid drug., 159, cm, 04/18/24 12:49:00 EDT, Height, 66.1, kg, 09/15/23 15:22:00 EST, Dry Weight Start Date: 04/18/24 Status: Ordered Quantity: 90.0 Unit: tablet Repeat number: 4 Intrarosa 6.5 mg vaginal insert 1 application, Vaginally, Daily at bedtime, # 28 Unknown, 12 Refills, Maintenance, 09/03/24 9:00:00 AM EST, [facility]/pharmacy #2339, 159, cm, 09/03/24 8:28:00 EST, Height, 66.1, kg, 09/15/23 15:22:00 EST, Dry Weight Start Date: 09/03/24 Status: Ordered Quantity: 28.0 Unit: Unknown Repeat number: 13 Indication: Other specified menopausal and perimenopausal disorders losartan 25 mg oral tablet 25 mg, 1, tablet, By Mouth, Daily, # 90 tablet, Refills 3, Tot. Refills 3, Maintenance, 11/06/24 1:03:00 PM EST, Route to Pharmacy Electronically, [facility]/pharmacy #[id number], Partial fill upon patient request if [...] 12:00:00 PM EST, 11/06/24 1:05:00 PM EST, [facility]/pharmacy #[id number], Partial fill upon patient request if [...] 0 Refills, Maintenance, 11/06/24 1:11:00 PM EST, [facility]/pharmacy #[id number], Partial fill upon patient request if [...] 09/03/24 9:00:00 AMEST, Route to Pharmacy Electronically, [facility]/pharmacy #[id number], 159, cm, 09/03/24 8:28:00 EST, Height, [...] Care Team Personnel Name: Apolonia Sykes Position: [facility] PCO Associate Professional Member Role: PCP Address: [address] [place] [address]- Telecom: Name: Sully Salinas RN Position: S [...]
--- OUTSIDE RECORDS SUMMARY | 2025-01-08 19:36 | XMS_ITS | Clinical Summary ---
Author Organization [facility] Address [address] [place] [address] Care Team Providers Care Roof Mechanic Name Role Phone Amara Reyes MD Primary Care Provider [phone] Allergies Active Allergy Reactions Criticality Noted Date Comments Codeine 10/06/2020 Erythromycin 10/06/2020 Statins 02/20/2021 Terbinafine 10/06/2020 Medications Medication Sig Dispensed Refills Start Date End Date Status losartan (COZAAR) tablet 25 mg Take 1 tablet (25 mg total) by mouth daily. 0 Active EPINEPHrine 0.3 MG/0.3ML SOAJ Inject 0.3 mL (0.3 mg total) into the muscle once. 0 Active ezetimibe (ZETIA) tablet 10 mg Take 1 tablet (10 mg total) by mouth daily. 0 Active estradiol (ESTRACE) 0.1 MG/GM vaginal cream Place 2 g vaginally 2 (two) times a week. 0 Active valACYclovir (VALTREX) 500 MG tablet Take 1 tablet (500 mg total) by mouth daily. 0 Active Evolocumab (REPATHA SC) Inject under the skin every 14 (fourteen) days. 0 Active Estradiol (Yuvafem) [address] vaginally. 0 Active cycloSPORINE (RESTASIS) 0.05 % ophthalmic emulsion Place 1 drop into both eyes 2 (two) times a day. 0 Active Active Problems Problem Noted Date Diagnosed Date Melanoma 10/07/2020 Cancer Staging:Pathologic stage from 10/27/2012:Stage IIIB(pT0, pN1b, cM0) - Signed by Charlie Mcgraw MD on 02/20/2021 Dyslipidemia 03/08/2018 Primary osteoarthritis of knees, bilateral 02/27 Benign essential hypertension 10/17/2017 Interstitial cystitis 10/17/2017 Family History Medical History Relation Name Comments Cancer Sister Relation Name Status Comments Sister Social History Tobacco Use Types Packs/Day Years Used Date Smoking Tobacco: Never Smokeless Tobacco: Never Alcohol Use Standard Drinks/Week Comments Yes 0 (1 standard drink = 0.6 oz pur e alcohol) Sex and Gender Information Value Date Recorded Sex Assigned at Not on file Gender Identity Not on file Sexual Orientation Not on file Job Start Date Occupation Industry Not on file Not on file Not on file Last Filed Vital Signs Vital Sign Reading Time Taken Comments Blood Pressure 136/87 01/26/2023 8:58 AM EDT Pulse 96 01/26/2023 8:58 AM EDT Temperature 36.1 ??C (97 ??F) 01/26/2023 8:58 AM EDT Respiratory Rate - - Oxygen Saturation 97% 01/26/2023 8:58 AM EDT Inhaled Oxygen Concentration - - Weight 68.5 kg (151 lb) 01/26/2023 8:58 AM EDT Height 160 cm (5' 3 ) 01/26/2023 8:58 AM EDT Body Mass Index 26.75 01/26/2023 8:58 AM EDT Plan of Treatment Health Maintenance Due Date Last Done Comments Hepatitis C Screening 1961 Pneumococcal Vaccine (1 of 2 - PCV) 1967 Depression Screening 1973 Preventative Health Evaluation 1979 Cervical Cancer Screening (Pap Smear) 1982 Colon Cancer Screening (Colonoscopy) 2006 Breast Cancer Screening (Mammogram) 2011 COVID-19 Vaccine (3 - Pfizer risk series) 03/22/2021 02/22/2021, 01/30/2021 Influenza Vaccine (#1) 2024 , 08/11/2022, 07/27/2021, Additional history exists DTap / Tdap / Td (3 - Td or Tdap) 09/14/2032 09/14/2022, 08/12/2012, 02/26/2004, Additional history exists Hepatitis B Vaccines Aged Out 11/09/2014, 06/07/2014, 04/20/2014 No longer eligible based on patient's age to complete this topic Shingrix-Zoster Vaccine Completed 10/05/2021, 06/23 RSV Adult > 60+ Yrs or Completed 08/03/2023 RSV Ped < 20 months Aged Out No longe r eligible based on patient's age to complete this topic Care Teams Roof Mechanic Relationship Specialty Start Date End Date Amara Reyes MD PCP - General Internal Medicine 06/23/21
[2025-01-08 20:22] VITALS: BP 125/86; PULSE 79; RESP 12; TEMP 36.8; O2SAT 96
[2025-01-08 20:28] VITALS: BP 125/86; PULSE 79; RESP 12; TEMP 36.8; O2SAT 98
--- NOTE | 2025-01-08 20:28 | PC.NURSE ---
Pt a&ox4, no signs of distress. Pt reports 3/10 pain. Vitals stable Plan of care ongoing.
== END 2025-01-08 20:30 | disposition home or self-care (01) ==
PROVIDERS: Physician Assistant; Emergency Provider Emergency Medicine Emergency Medical Services; PCP Internal Medicine
DX: K80.20 Calculus of gallbladder without cholecystitis without obstruction (principal); N39.0 Urinary tract infection, site not specified; R10.11 Right upper quadrant pain; R11.0 Nausea; I10 Essential (primary) hypertension; M54.50 Low back pain, unspecified; Z79.899 Other long term (current) drug therapy
CPT/HCPCS: 36415; 74176; 76705; 80053; 81001; 83690; 85025; 87086; 87088; 87186; 99284

== ENCOUNTER → 2025-01-08 13:59 | Outpatient (BNV) | payer BC, OTHER, SELFPAY | PROVIDERS: PCP Internal Medicine; Visit Provider Radiology Diagnostic Radiology | DX: R10.9 Unspecified abdominal pain (principal) | CPT/HCPCS: 74176; 76705 ==